=== PATIENT | female | born 1960 | race Caucasian/White ===

== ENCOUNTER 2020-09-16 19:06 | Outpatient (CLI) | payer MEDICAID | END 2020-09-16 19:07 | disposition critical access hospital (66) | LOC: EMS 19:06 | DX: F41.0 Panic disorder [episodic paroxysmal anxiety] (principal) | CPT/HCPCS: A0425; A0429 ==

== ENCOUNTER 2020-09-16 19:46 | Emergency (ER) | payer MEDICAID ==
[2020-09-16] MEDS ORDERED: LORazepam 1 MG TABLET PO STA (20:26)
--- NOTE | 2020-09-16 20:29 | ED Physician Documentation ---
History of Present Illness - Stated complaint Stated Complaint: PANIC ATTACK, NECK AND SHOULDER PAIN - Chief complaint Chief Complaint: MHE - Additonal information Additional information: 60-year-old female presents the emergency department after a panic attack. She reports a longstanding history of anxiety and panic attacks. She recently moved from [place] to [facility] in order to help care for her father. She got into a very heated argument with her dad and brother this afternoon which caused a panic attack. Though no treatment has been instituted she is feeling better however she is quite adamant that she will not return to her father's house. She is not sure what she will go tonight if she is hesitant to call her children in [place] to come pick her up. At this time she denies chest pain or shortness of air. She is anxious and is requesting some lorazepam. She denies thoughts of self-harm or harm to others. Past medical history includes depression and anxiety and hypothyroidism Meds: Gabapentin, venlafaxine, levothyroxine, omeprazole Review of Systems Constitutional: denies: Fever, Chills Eyes: reports: Reviewed and negative Ears: reports: Reviewed and negative Nose: reports: Reviewed and negative Throat: reports: Reviewed and negative Cardiac: reports: Reviewed and negative Respiratory: reports: Reviewed and negative GI: reports: Reviewed and negative : reports: Reviewed and negative Skin: denies: Rash, Lesions Musculoskeletal: reports: Reviewed and negative Neurologic: reports: Reviewed and negative Psychiatric: reports: Depressed, Anxiety. 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 : Kidney stones HEENT: None Psych: Depression Musculoskeletal: None Derm: None - Past Surgical History Past Surgical History: Yes General: Cholecystectomy, Appendectomy /PLASTICS SCIENTIST: Hysterectomy - Present Medications Home Medications: Ambulatory Orders Medication Instructions Recorded Confirmed Levothyroxine [Synthroid] 1 tab ORAL DAILY 10/23/12 10/23/12 Ondansetron Odt [Zofran] 4 mg TL Q6H PRN #15 tablet 08/19/13 PARoxetine HCl [Paxil] 30 mg PO DAILY 08/19/13 08/19/13 oxyCODONE/ACET 5/325 [Percocet 5 1 each PO Q4-6H PRN #15 tablet 08/19/13 mg/325 mg] Escitalopram Oxalate [Lexapro] 25 mg PO DAILY 12/11/13 12/11/13 Ibuprofen [Motrin] 800 mg PO Q8H PRN #30 tablet 12/11/13 Levothyroxine [Synthroid] 125 mcg PO DAILY 12/11/13 12/11/13 Ondansetron Odt [Zofran] 4 mg TL Q6H PRN #10 tablet 12/11/13 Oxycodone HCl/Acetaminophen 1 - 2 each PO Q6H PRN #14 tablet 12/11/13 [Percocet 5-325 mg Tablet] LORazepam [Ativan] 1 mg PO BID PRN #7 tablet 09/16/20 - Allergies Allergies/Adverse Reactions: Allergies Allergy/AdvReac Type Severity Reaction Status Date / Time prochlorperazine edisylate * Allergy Severe paralysis Verified 09/16/20 19:57 [From Compazine] prochlorperazine maleate * Allergy Severe paralysis Verified 09/16/20 19:57 [From Compazine] Penicillins Allergy Unknown Rash Verified 09/16/20 19:57 Sulfa (Sulfonamide Allergy Unknown Nausea Verified 09/16/20 19:57 Antibiotics) - Social History Does the pt smoke?: No Smoking Status: Never smoker Does the pt drink ETOH?: No Does the pt have substance abuse?: No - Immunizations Immunizations are current?: Yes - POLST Patient has POLST: No PD ED PE EXPANDED - General General: Alert, No acute distress, Well developed/nourished - HEENT HEENT: Atraumatic - Neck Neck: Supple w/out meningeal sx. No: Adenopathy - Cardiac Cardiac: Regular Rate, Regular Rhythm - Respiratory Respiratory: Clear to ausultation anmol. No: Distress, Labored - Abdomen Abdomen: Normal Bowel sounds. No: Tender to palpation - Neuro Neuro: Alert and Oriented X 3, CNII-XII intact - GCS Eye Opening: Spontaneous Motor: Obeys Commands Verbal: Oriented Total: 15 - Psych Psych: Tearful, Anxious Results - Vitals Vitals: Vital Signs - 24 hr 09/16/20 09/16/20 19:55 20:44 Temperature 36.7 C Heart Rate 93 Respiratory 16 16 Rate Blood Pressure 146/77 H O2 Saturation 98 Oxygen O2 Source Room air PD MEDICAL DECISION MAKING - ED course Complexity details: re-evaluated patient, d/w patient ED course: 60-year-old female presents to the emergency department for evaluation of an anxiety attack. She is adamant that she will not return to her father's house however she is also not willing to board overnight in the emergency department to discuss her concerns with social work. She does not have thoughts of self- harm or harm to others. She is resistant to calling her children to pick her up. She is requesting some Ativan to help manage her anxiety which I will give. 2114: On reassessment the patient is feeling better after some Ativan. She does not wish to return to her father's home but she also does not want to remain in the emergency department overnight to speak with social work in the morning. She is safe and has capacity make this decision. I will write a prescription for limited amount of Ativan. She will then take a taxi to her dad's house where she will retrieve her possessions and likely call one of her sons from [place] to pick her up. Departure - Departure Disposition: Home, Self Care Clinical Impression: Panic attack Condition: Stable Record reviewed to determine appropriate education?: Yes Instructions: ED Panic Attack Prescriptions: LORazepam [Ativan] 1 mg PO BID PRN #7 tablet PRN Reason: Anxiety Comments: Johny you did have a panic attack. It is important that you continue to take all the medications you have previously been prescribed for your anxiety and depression. I have prescribed a limited amount of Ativan to be used for severe anxiety symptoms. If at any point you feel unsafe or have thoughts of self-harm please return immediately to the emergency department
[2020-09-16 21:28] VITALS: BP 139/66
== END 2020-09-16 21:40 | disposition home or self-care (01) ==
LOC: EDUNIT# → ED 19:46
DX: F41.0 Panic disorder [episodic paroxysmal anxiety] (principal); F32.9 Major depressive disorder, single episode, unspecified; E03.9 Hypothyroidism, unspecified
CPT/HCPCS: 99283; J8499

== ENCOUNTER 2021-02-08 18:31 | Outpatient (CLI) | payer MEDICAID | END 2021-02-08 18:32 | disposition EMS.NT | LOC: EMS 18:31 | DX: R45.89 Other symptoms and signs involving emotional state (principal) ==

== ENCOUNTER 2021-03-27 14:24 | Outpatient (CLI) | payer MEDICAID ==
--- NOTE | 2021-03-28 08:03 | Mammography Report ---
BILATERAL DIGITAL SCREENING MAMMOGRAM 3D/2D WITH AUGMENTATION: 03/27/2021 CLINICAL: Routine screening. Comparison is made to exams dated: 01/01/2012 ultrasound, 01/01/2012 mammogram, and 03/25/2008 mammogr - [facility]. The tissue of both breasts is heterogeneously dense. This may low er the sensitivity of mammography. There is a possible developing new asymmetry in the left breast anterior depth central to the nipple seen on the craniocaudal view only. No other significant masses, calcifications, or other findings are seen in either breast. There has been no significant interval change. IMPRESSION: INCOMPLETE: NEEDS ADDITIONAL IMAGING EVALUATION The possible developing new asymmetry in the left breast is indeterminate. Additional views with pos sible ultrasound are recommended. This exam was interpreted at Station ID: [id number]. NOTE: For mammograms, a report in lay terms will be sent to the patient. Approximately 15% of breast malignancies will not be visualized mammographically. In the management of a palpable breast mass, a negative mammogram must not discourage biopsy of a clinically suspicious lesion. Electronically Signed By: Jacquie montague/shazia:03/27/2021 17:16:37 ACR BI-RADS Category 0: Incomplete 3340F PARENCHYMAL PATTERN: (D) - The breast(s) demonstrate(s) heterogeneously dense fibroglandular parmadalyn murdock. BI-RADS CATEGORY: (0) - 0 Mammo and US [id number] Immediate follow-up LATERALITY: (B)
== END 2021-03-27 14:25 | disposition home or self-care (01) ==
LOC: DI 14:24
PROVIDERS: ATTEND Registered Nurse
DX: Z12.31 Encounter for screening mammogram for malignant neoplasm of breast (principal); R92.8 Other abnormal and inconclusive findings on diagnostic imaging of breast

== ENCOUNTER 2021-03-27 14:28 | Outpatient (CLI) | payer MEDICAID ==
--- NOTE | 2021-04-03 14:27 | DEXA Report ---
PROCEDURE: Dexa Spine and/or Hip INDICATIONS: OSTEOPENIA TECHNIQUE: Dual energy x-ray absorptiometry (DXA) was performed on a DLC System. Regions measur ed are the AP Spine, femoral neck, and if needed forearm. COMPARISON: None. FINDINGS: Lumbar Spine: Bone Mineral Density 1.076 g/cm/cm,T score -0.9, unremarkable Left Hip: Bone Mineral Density 0.867 g/cm/cm,T score -1.1, minimal osteopenia Left Femoral Neck: Bone Mineral Density 0.810 g/cm/cm, T score -1.5, mild osteopenia (T score greater or equal to -1.0: NORMAL) (T score from -1.1 to -2.4: OSTEOPENIA) (T score less than or equal to -2.5 to: OSTEOPOROSIS) Impression: Minimal to mild osteopenia within the left hip and femoral neck. Patients with diagnosis of osteoporosis or osteopenia should have regular bone mineral density assess ment. For those eligible for Medicare, routine testing is allowed once every 2 years. Testing frequ ency can be increased for patients who have rapidly progressing disease or for those who are receivin g medical therapy to restore bone mass. Reviewed by: Sanna Cao MD on 04/03/2021 2:26 PM PDT Approved by: Sanna Cao MD on 04/03/2021 2:26 PM PDT Station ID: [id number]
== END 2021-03-27 14:29 | disposition home or self-care (01) ==
LOC: DI 14:28
PROVIDERS: ATTEND Registered Nurse
DX: M85.88 Other specified disorders of bone density and structure, other site (principal)

== ENCOUNTER 2021-05-03 09:33 | Outpatient (CLI) | payer MEDICAID ==
--- NOTE | 2021-05-04 13:29 | Ultrasound Report ---
LIMITED ULTRASOUND OF LEFT BREAST: 05/03/2021 CLINICAL: Patient returns today to evaluate a focal asymmetry in the left breast. Comparison is made to exams dated: 05/03/2021 mammogram, 03/27/2021 mammogram, 01/01/2012 mammogram, a nd 03/25/2008 mammogram - [facility]. Real-time ultrasound of the left breast 9-10 o'clock, and retroareolar regions was performed. Falk scale images of the real-time examination were reviewed. Fibroglandular tissue but no mass is identifed in the area of the mammographic asymmetry in the left breast central to the nipple. IMPRESSION: NEGATIVE No sonographic abnormality is seen corresponding to the mammographic asymmetry in the left breast marielle tral to the nipple, which is compatible with normal fibroglandular tissue. Return to screening mammog jessica is recommended. There is no sonographic evidence of malignancy. A 1 year screening mammogram is recommended. This exam was interpreted at Station ID: [id number]. Electronically Signed By: Cheo randall/shazia:05/03/2021 10:52:03 Ultrasound BI-RADS: 1 Negative BI-RADS CATEGORY: (1) - 1 RECOMMENDATION: (ANNUAL) - Recommend routine annual screening mammography. [id number] 1 year screening LATERALITY: (B)
--- NOTE | 2021-05-04 13:29 | Mammography Report ---
UNILATERAL LEFT DIGITAL DIAGNOSTIC MAMMOGRAM 3D/2D: 05/03/2021 CLINICAL: Patient returns today to evaluate an asymmetry in the left breast. Comparison is made to exams dated: 03/27/2021 mammogram, 01/01/2012 mammogram, and 03/25/2008 mammogr am - [facility]. The tissue of left breast is heterogeneously dense. This may lowe r the sensitivity of mammography. Left subpectoral saline implant is intact. There is a possible developing asymmetry in the left breast anterior depth central to the nipple seen on the craniocaudal view only. This is less prominent. No other significant masses or calcifications are seen in the breast. IMPRESSION: INCOMPLETE: NEEDS ADDITIONAL IMAGING EVALUATION The possible developing asymmetry in the left breast resembles fibroglandular tissue and is indetermi jean. An ultrasound is recommended. This exam was interpreted at Station ID: [id number]. NOTE: For mammograms, a report in lay terms will be sent to the patient. Approximately 15% of breast malignancies will not be visualized mammographically. In the management of a palpable breast mass, a negative mammogram must not discourage biopsy of a clinically suspicious lesion. Electronically Signed By: Cheo randall/shazia:05/03/2021 10:50:50 ACR BI-RADS Category 0: Incomplete 3340F PARENCHYMAL PATTERN: (D) - The breast(s) demonstrate(s) heterogeneously dense fibroglandular bobby murdock. BI-RADS CATEGORY: (0) - 0 Ultrasound [id number] Immediate follow-up LATERALITY: (L)
== END 2021-05-03 09:34 | disposition home or self-care (01) ==
LOC: DI 09:33
PROVIDERS: ATTEND Registered Nurse
DX: R92.8 Other abnormal and inconclusive findings on diagnostic imaging of breast (principal)

== ENCOUNTER 2021-06-12 10:19 | Outpatient (CLI) | payer MEDICAID | END 2021-06-12 10:20 | disposition critical access hospital (66) | LOC: EMS 10:19 | DX: Z63.79 Other stressful life events affecting family and household (principal) | CPT/HCPCS: A0425; A0429 ==

== ENCOUNTER 2021-06-12 10:46 | Emergency (ER) | payer MEDICAID ==
--- NOTE | 2021-06-12 12:12 | ED Physician Documentation ---
History of Present Illness - Stated complaint Stated Complaint: MHE - Chief complaint Chief Complaint: MHE - History obtained from History obtained from: Patient - Additonal information Additional information: 61-year-old woman with history of anxiety and depression has had worsening shortness of breath and neck aches but she thinks are related to anxiety regarding her living situation and housing situation. She would like to be hospitalized for psychiatric stabilization. She denies fevers or chills. She is generally healthy taking a thyroid supplement for hypothyroidism and Lexapro for her depression. Was on gabapentin but stopped recently. 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 : Kidney stones HEENT: None Psych: Depression, Anxiety Musculoskeletal: None Derm: None - Past Surgical History Past Surgical History: Yes General: Cholecystectomy, Appendectomy /WASTEWATER TREATMENT PLANT SUPERVISOR: Hysterectomy - Present Medications Home Medications: Ambulatory Orders Medication Instructions Recorded Confirmed Levothyroxine [Synthroid] 1 tab ORAL DAILY 10/23/12 10/23/12 Ondansetron Odt [Zofran] 4 mg TL Q6H PRN #15 tablet 08/19/13 PARoxetine HCl [Paxil] 30 mg PO DAILY 08/19/13 08/19/13 oxyCODONE/ACET 5/325 [Percocet 5 1 each PO Q4-6H PRN #15 tablet 08/19/13 mg/325 mg] Escitalopram Oxalate [Lexapro] 25 mg PO DAILY 12/11/13 12/11/13 Ibuprofen [Motrin] 800 mg PO Q8H PRN #30 tablet 12/11/13 Levothyroxine [Synthroid] 125 mcg PO DAILY 12/11/13 12/11/13 Ondansetron Odt [Zofran] 4 mg TL Q6H PRN #10 tablet 12/11/13 Oxycodone HCl/Acetaminophen 1 - 2 each PO Q6H PRN #14 tablet 12/11/13 [Percocet 5-325 mg Tablet] LORazepam [Ativan] 1 mg PO BID PRN #7 tablet 09/16/20 - Allergies Allergies/Adverse Reactions: Allergies Allergy/AdvReac Type Severity Reaction Status Date / [facility] Allergy Severe paralysis Verified 06/12/21 11:01 [From Compazine] prochlorperazine maleate * Allergy Severe paralysis Verified 06/12/21 11:01 [From Compazine] Penicillins Allergy Unknown Rash Verified 06/12/21 11:01 Sulfa (Sulfonamide Allergy Unknown Nausea Verified 06/12/21 11:01 Antibiotics) - Social History Does the pt smoke?: No Smoking Status: Never smoker Does the pt drink ETOH?: No Does the pt have substance abuse?: No - Immunizations Immunizations are current?: Yes - POLST Patient has POLST: No PD ED PE NORMAL - Vitals Vital signs reviewed: Yes - General General: Alert and oriented X 3, Other (Tearful and overtly depressed) - HEENT HEENT: PERRL, EOMI, Pharynx benign - Neck Neck: Supple, no meningeal sign, No bony TTP - Cardiac Cardiac: RRR, No murmur - Respiratory Respiratory: No respiratory distress, Clear bilaterally - Abdomen Abdomen: Non tender - Back Back: No CVA TTP, No spinal TTP - Derm Derm: Normal color, Warm and dry, No rash - Extremities Extremities: No edema, No calf tenderness / cord - Neuro Neuro: Alert and oriented X 3, Normal speech Results - Vitals Vitals: Vital Signs - 24 hr 06/12/21 10:56 Temperature 36.6 C Heart Rate 104 H Respiratory 20 Rate Blood Pressure 137/96 H O2 Saturation 100 Oxygen O2 Source Room air - EKG (time done) 1227 Rate: Rate (enter#) (89) Rhythm: NSR Harmon: Normal Intervals: Normal MS QRS: Normal Ischemia: Normal ST segments - Labs Labs: Laboratory Tests 06/12/21 06/12/21 06/12/21 12:22 12:22 12:22 WBC 3.7 L RBC 4.74 Hgb 14.7 Hct 42.2 MCV 89.0 MCH 31.0 MCHC 34.8 RDW 12.7 Plt Count 229 MPV 8.7 Neut # (Auto) 1.8 Lymph # (Auto) 1.4 L [place] # (Auto) 0.3 Eos # (Auto) 0.1 Baso # (Auto) 0.0 Absolute Nucleated RBC 0.00 Nucleated RBC % 0.0 Sodium 140 Potassium 3.8 Chloride 102 Carbon Dioxide 22 Anion Gap 16.0 H BUN 10 Creatinine 0.6 Estimated GFR (MDRD) 102 Glucose 104 H Calcium 9.7 Total Bilirubin 1.0 AST 29 ALT 26 Alkaline Phosphatase 71 Total Protein 7.4 Albumin 4.8 Globulin 2.6 Albumin/Globulin Ratio 1.8 Lipase 27 TSH 0.30 L Urine Color Urine Clarity Urine pH Ur Specific [place] Urine Protein Urine Glucose (UA) Urine Ketones Urine Occult Blood Urine Nitrite Urine Bilirubin Urine Urobilinogen Ur Leukocyte Esterase Ur Microscopic Review Urine Culture Comments Nasal Adenovirus (PCR) Nasal B. parapertussis DNA (PCR) Nasal Coronavir 229E PCR Nasal Coronavir HKU1 PCR Nasal Coronavir NL63 PCR Nasal Coronavir OC43 PCR Nasal Enterovir/Rhinovir PCR Nasal Influenza B PCR Nasal Influenza A PCR Nasal Parainfluen 1 PCR Nasal Parainfluen 2 PCR Nasal Parainfluen 3 PCR Nasal Parainfluen 4 PCR Nasal RSV (PCR) Nasal B.pertussis DNA PCR Nasal C.pneumoniae (PCR) Kishor Human Metapneumo PCR Nasal M.pneumoniae (PCR) Nasal SARS-CoV-2 (PCR) Salicylates < 6.0 Urine Opiates Screen Ur Oxycodone Screen Urine Methadone Screen Ur Propoxyphene Screen Acetaminophen < 10 L Ur Barbiturates Screen Ur Tricyclics Screen Ur Phencyclidine Scrn Ur Amphetamine Screen U Methamphetamines Scrn U Benzodiazepines Scrn Urine Cocaine Screen U Cannabinoids Screen Ethyl Alcohol 207.4 06/12/21 06/12/21 12:30 12:58 WBC RBC Hgb Hct MCV MCH MCHC RDW Plt Count MPV Neut # (Auto) Lymph # (Auto) [place] # (Auto) Eos # (Auto) Baso # (Auto) Absolute Nucleated RBC Nucleated RBC % Sodium Potassium Chloride Carbon Dioxide Anion Gap BUN Creatinine Estimated GFR (MDRD) Glucose Calcium Total Bilirubin AST ALT Alkaline Phosphatase Total Protein Albumin Globulin Albumin/Globulin Ratio Lipase TSH Urine Color YELLOW Urine Clarity CLEAR Urine pH 8.0 H Ur Specific [place] 1.010 Urine Protein NEGATIVE Urine Glucose (UA) NEGATIVE Urine Ketones TRACE Urine Occult Blood NEGATIVE Urine Nitrite NEGATIVE Urine Bilirubin NEGATIVE Urine Urobilinogen 0.2 (NORMAL) Ur Leukocyte Esterase NEGATIVE Ur Microscopic Review NOT INDICATED Urine Culture Comments NOT INDICATED Nasal Adenovirus (PCR) NOT DETECTED Nasal B. parapertussis DNA (PCR) NOT DETECTED Nasal Coronavir 229E PCR NOT DETECTED Nasal Coronavir HKU1 PCR NOT DETECTED Nasal Coronavir NL63 PCR NOT DETECTED Nasal Coronavir OC43 PCR NOT DETECTED Nasal Enterovir/Rhinovir PCR NOT DETECTED Nasal Influenza B PCR NOT DETECTED Nasal Influenza A PCR NOT DETECTED Nasal Parainfluen 1 PCR NOT DETECTED Nasal Parainfluen 2 PCR NOT DETECTED Nasal Parainfluen 3 PCR NOT DETECTED Nasal Parainfluen 4 PCR NOT DETECTED Nasal RSV (PCR) NOT DETECTED Nasal B.pertussis DNA PCR NOT DETECTED Nasal C.pneumoniae (PCR) NOT DETECTED Kishor Human Metapneumo PCR NOT DETECTED Nasal M.pneumoniae (PCR) NOT DETECTED Nasal SARS-CoV-2 (PCR) NOT DETECTED Salicylates Urine Opiates Screen NEGATIVE Ur Oxycodone Screen NEGATIVE Urine Methadone Screen NEGATIVE Ur Propoxyphene Screen NEGATIVE Acetaminophen Ur Barbiturates Screen NEGATIVE Ur Tricyclics Screen NEGATIVE Ur Phencyclidine Scrn NEGATIVE Ur Amphetamine Screen NEGATIVE U Methamphetamines Scrn NEGATIVE U Benzodiazepines Scrn NEGATIVE Urine Cocaine Screen NEGATIVE U Cannabinoids Screen POSITIVE H Ethyl Alcohol PD MEDICAL DECISION MAKING - ED course ED course: 61-year-old woman presents with depression and anxiety. She is intoxicated biochemically but not so much clinically. She was observed for several hours, ambulatory without issue or ataxic gait. Seen by the child protective services social worker who felt her safe for discharge and gave her resources and formulated a follow-up plan. Departure - Departure Disposition: 01 Home, Self Care Clinical Impression: Depressive disorder Alcoholic intoxication Qualifiers: Complication of substance-induced condition: uncomplicated Qualified Code(s): F10.920 - Alcohol use, unspecified with intoxication, uncomplicated Condition: Good Record reviewed to determine appropriate education?: Yes Instructions: ED Depression, ED Alcohol Intoxication Comments: Follow-up with the crisis child protective services social worker tomorrow as arranged by our child protective services social worker. Return for new or worsening symptoms. I recommend abstaining from drugs and alcohol.
[2021-06-12 12:27] LABS: BASOPHILS % (AUTO) 1.1 %; EOSINOPHILS # (AUTO) 0.1 10^3/uL (0.0-0.7); EOSINOPHILS % (AUTO) 1.4 %; HCT - HEMATOCRIT 42.2 % (37.0-47.0); HGB - HEMOGLOBIN 14.7 g/dL (12.0-16.0); LYMPHOCYTES # (AUTO) 1.4 10^3/uL (1.5-3.5); LYMPHOCYTES % (AUTO) 38.9 %; MEAN CORPUSCULAR HGB CONC 34.8 g/dL (32.0-36.0); MEAN PLATELET VOLUME 8.7 fL (7.9-10.8); MONOCYTES # (AUTO) 0.3 10^3/uL (0.0-1.0); MONOCYTES % (AUTO) 9.2 %; NEUTROPHILS # (AUTO) 1.8 10^3/uL (1.5-6.6); NEUTROPHILS % (AUTO) 49.1 %; PLT - PLATELET COUNT 229 10^3/uL (130-450); RED BLOOD COUNT 4.74 10^6/uL (4.20-5.40); RED CELL DISTRIBUTION WIDTH 12.7 % (12.0-15.0); WHITE BLOOD COUNT 3.7 x10^3/uL (4.8-10.8)
[2021-06-12] MEDS ORDERED: LORazepam 1 MG TABLET PO STA (12:34)
[2021-06-12 12:44] LABS: ACETAMINOPHEN < 10 ug/mL (10-30); ALBUMIN 4.8 g/dL (3.2-5.5); ALBUMIN/GLOBULIN RATIO 1.8 (1.0-2.2); ALKALINE PHOSPHATASE 71 IU/L (42-121); ALT ALANINE AMINOTRANSFERASE 26 IU/L (10-60); AST ASPARTATE AMINOTRANSFERASE 29 IU/L (10-42); BUN - BLOOD UREA NITROGEN 10 mg/dL (6-20); CALCIUM 9.7 mg/dL (8.5-10.3); CARBON DIOXIDE - CO2 22 mmol/L (21-32); CHLORIDE 102 mmol/L (101-111); CREATININE 0.6 mg/dL (0.4-1.0); ETOH - ETHANOL 207.4 mg/dL; GFR - MDRD 102 (>89); GLUCOSE 104 mg/dL (70-100); LIPASE 27 U/L (22-51); POTASSIUM 3.8 mmol/L (3.5-5.0); SALICYLATE < 6.0 mg/dL; SODIUM 140 mmol/L (135-145); TOTAL PROTEIN 7.4 g/dL (6.7-8.2)
[2021-06-12 12:47] LABS: MUDS CUTOFF CONCENTRATIONS CUTOFF CONC BELOW:
[2021-06-12 12:52] LABS: BILIRUBIN,URINE NEGATIVE (NEGATIVE); GLUCOSE, URINE (UA) NEGATIVE (NEGATIVE); KETONES,URINE (UA) TRACE mg/dL (NEGATIVE); LEUKOCYTE ESTERASE, URINE NEGATIVE (NEGATIVE); NITRITE,URINE NEGATIVE (NEGATIVE); OCCULT BLOOD,URINE NEGATIVE (NEGATIVE); PROTEIN,URINE NEGATIVE (NEGATIVE); UROBILINOGEN,URINE 0.2 (NORMAL) E.U./dL (NORMAL)
[2021-06-12 12:53] LABS: CLARITY,URINE CLEAR (CLEAR)
[2021-06-12 13:03] LABS: AMPHETAMINE SCREEN,URINE NEGATIVE (NEGATIVE); BARBITURATE SCREEN,UR NEGATIVE (NEGATIVE); BENZODIAZEPINES SCREEN, URINE NEGATIVE (NEGATIVE); COCAINE SCREEN URINE NEGATIVE (NEGATIVE); METHADONE SCREEN, URINE NEGATIVE (NEGATIVE); METHAMPHETAMINES SCREEN, URINE NEGATIVE (NEGATIVE); OPIATE SCREEN, URINE NEGATIVE (NEGATIVE); OXYCODONE SCREEN, URINE NEGATIVE (NEGATIVE); PROPOXYPHENE SCREEN, URINE NEGATIVE (NEGATIVE); THC CANNABINOID SCREEN, URINE POSITIVE (NEGATIVE); TRICYCLIC ANTIDEPRESSANT,URINE NEGATIVE (NEGATIVE)
[2021-06-12 14:23] LABS: B. PARAPERTUSSIS- RESP PCR PAN NOT DETECTED; B. PERTUSSIS- RESP PCR PANEL NOT DETECTED; C. PNEUMONIAE- RESP PCR PANEL NOT DETECTED; CORONAVIRUS 229E-RESP PCR NOT DETECTED; CORONAVIRUS HKU1-RESP PCR NOT DETECTED; CORONAVIRUS NL63-RESP PCR NOT DETECTED; CORONAVIRUS OC43-RESP PCR NOT DETECTED; HUMAN METAPNEUMOVIRUS NOT DETECTED; INFLUENZA A- RESP PCR PANEL NOT DETECTED; INFLUENZA B - RESP PCR PANEL NOT DETECTED; M. PNEUMONIAE- RESP PCR PANEL NOT DETECTED; PARAINFLUENZA VIRUS 1 NOT DETECTED; PARAINFLUENZA VIRUS 2 NOT DETECTED; PARAINFLUENZA VIRUS 3 NOT DETECTED; PARAINFLUENZA VIRUS 4 NOT DETECTED; RHINOVIRUS/ENTEROVIRUS NOT DETECTED; RSV- RESP PCR PANEL NOT DETECTED; SARS-CoV-2 -RESP PCR PANEL NOT DETECTED
[2021-06-12 17:08] VITALS: BP 159/64
== END 2021-06-12 17:09 | disposition home or self-care (01) ==
LOC: EDUNIT# → ED 10:46
DX: F32.A Depression, unspecified (principal); F41.9 Anxiety disorder, unspecified; F10.920 Alcohol use, unspecified with intoxication, uncomplicated; E03.9 Hypothyroidism, unspecified; Z20.822 Contact with and (suspected) exposure to COVID-19
CPT/HCPCS: 0202U; 36415; 80053; 80306; 80307; 80320; 80329; 81003; 83690; 84443; 85025; 93005; 99283; J8499; 81001; 87086

== ENCOUNTER 2021-06-21 12:49 | Outpatient (CLI) | payer MEDICAID ==
[2021-06-21 15:12] LABS: BASOPHILS % (AUTO) 0.9 %; EOSINOPHILS % (AUTO) 0.2 %; HCT - HEMATOCRIT 39.3 % (37.0-47.0); HGB - HEMOGLOBIN 13.6 g/dL (12.0-16.0); LYMPHOCYTES # (AUTO) 0.7 10^3/uL (1.5-3.5); LYMPHOCYTES % (AUTO) 15.7 %; MEAN CORPUSCULAR HEMOGLOBIN 30.8 pg (27.0-31.0); MEAN CORPUSCULAR HGB CONC 34.6 g/dL (32.0-36.0); MEAN CORPUSCULAR VOLUME 88.9 fL (81.0-99.0); MEAN PLATELET VOLUME 9.9 fL (7.9-10.8); MONOCYTES # (AUTO) 0.4 10^3/uL (0.0-1.0); MONOCYTES % (AUTO) 8.1 %; NEUTROPHILS # (AUTO) 3.4 10^3/uL (1.5-6.6); NEUTROPHILS % (AUTO) 74.9 %; PLT - PLATELET COUNT 157 10^3/uL (130-450); RED BLOOD COUNT 4.42 10^6/uL (4.20-5.40); RED CELL DISTRIBUTION WIDTH 12.6 % (12.0-15.0); WHITE BLOOD COUNT 4.6 x10^3/uL (4.8-10.8)
[2021-06-21 15:34] LABS: ALBUMIN 4.6 g/dL (3.2-5.5); ALBUMIN/GLOBULIN RATIO 1.5 (1.0-2.2); ALKALINE PHOSPHATASE 74 IU/L (42-121); ALT ALANINE AMINOTRANSFERASE 42 IU/L (10-60); AST ASPARTATE AMINOTRANSFERASE 42 IU/L (10-42); BILIRUBIN,TOTAL 0.7 mg/dL (0.2-1.0); BUN - BLOOD UREA NITROGEN 11 mg/dL (6-20); CALCIUM 9.6 mg/dL (8.5-10.3); CARBON DIOXIDE - CO2 25 mmol/L (21-32); CHLORIDE 96 mmol/L (101-111); CHOL/HDL RATIO 1.7 (<4.4); CHOLESTEROL 225 mg/dL; CREATININE 0.8 mg/dL (0.4-1.0); GFR - MDRD 73 (>89); GLUCOSE 159 mg/dL (70-100); HDL CHOLESTEROL 129 mg/dL; LDL CHOLESTEROL,CALCULATED 82 mg/dL; LDL/HDL RATIO 0.6 (<4.4); POTASSIUM 3.2 mmol/L (3.5-5.0); SODIUM 131 mmol/L (135-145); TOTAL PROTEIN 7.7 g/dL (6.7-8.2); TRIGLYCERIDES 69 mg/dL; VLDL CHOLESTEROL 14 mg/dL
[2021-06-21 15:46] LABS: THYROID STIMULATING HORMONE 0.18 uIU/mL (0.34-5.60)
[2021-06-21 16:28] LABS: FREE T4 (FREE THYROXINE) 1.35 ng/dL (0.58-1.64)
== END 2021-06-21 12:50 | disposition home or self-care (01) ==
LOC: LAB.S 12:49
PROVIDERS: ATTEND Registered Nurse
DX: E03.9 Hypothyroidism, unspecified (principal); Z79.899 Other long term (current) drug therapy
CPT/HCPCS: 36415; 80053; 80061; 83721; 84439; 84443; 85025

== ENCOUNTER 2021-07-05 17:17 | Emergency (ER) | payer MEDICAID ==
[2021-07-05] MEDS ORDERED: IOVERSOL 320 100 ML VIAL IVP ONE (18:04)
[2021-07-05] MEDS: SODIUM CHLORIDE 0.9% 1,000 ML IV STA (18:06)
[2021-07-05 18:07] LABS: BASOPHILS % (AUTO) 0.7 %; EOSINOPHILS % (AUTO) 0.4 %; HCT - HEMATOCRIT 42.4 % (37.0-47.0); HGB - HEMOGLOBIN 14.2 g/dL (12.0-16.0); LYMPHOCYTES # (AUTO) 1.6 10^3/uL (1.5-3.5); LYMPHOCYTES % (AUTO) 29.4 %; MEAN CORPUSCULAR HEMOGLOBIN 30.9 pg (27.0-31.0); MEAN CORPUSCULAR HGB CONC 33.5 g/dL (32.0-36.0); MEAN CORPUSCULAR VOLUME 92.2 fL (81.0-99.0); MONOCYTES # (AUTO) 0.5 10^3/uL (0.0-1.0); MONOCYTES % (AUTO) 9.7 %; NEUTROPHILS # (AUTO) 3.3 10^3/uL (1.5-6.6); NEUTROPHILS % (AUTO) 59.6 %; PLT - PLATELET COUNT 228 10^3/uL (130-450); WHITE BLOOD COUNT 5.6 x10^3/uL (4.8-10.8)
[2021-07-05] MEDS: ONDANSETRON 4 MG/2 ML VIAL IVP STA (18:09)
[2021-07-05] MEDS: HYDROmorphone 1 MG/ML CARPUJECT IVP STA ×2 (18:12→19:57)
--- NOTE | 2021-07-05 18:22 | ED Physician Documentation ---
History of Present Illness - Stated complaint Stated Complaint: KIDNEY STONES - Chief complaint Chief Complaint: Abd Pain - Additonal information Additional information: 61-year-old female presents emergency department for evaluation of 1 week of right flank pain with hematuria. She has a remote history of kidney stones and reports that this feels similar. She did go to a local walk-in clinic today and was told to come to the ER for further evaluation. No fevers, no vomiting. Denies urinary urgency or frequency. Past surgical history includes cholecystectomy as well as partial hysterectomy with remaining right ovary. Patient does endorse moderate to heavy alcohol use and has abstained from alcohol for about 3 days. She denies any history of DTs or seizures with cessation of alcohol use. Review of Systems Constitutional: denies: Fever, Chills Ears: reports: Reviewed and negative Nose: reports: Reviewed and negative Cardiac: reports: Reviewed and negative Respiratory: reports: Reviewed and negative GI: reports: Abdominal Pain. denies: Nausea, Vomiting : reports: Hematuria. 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 MARGARINE: Hysterectomy - Present Medications Home Medications: Ambulatory Orders Medication Instructions Recorded Confirmed Levothyroxine [Synthroid] 1 tab ORAL DAILY 10/23/12 10/23/12 Ondansetron Odt [Zofran] 4 mg TL Q6H PRN #15 tablet 08/19/13 PARoxetine HCl [Paxil] 30 mg PO DAILY 08/19/13 08/19/13 oxyCODONE/ACET 5/325 [Percocet 5 1 each PO Q4-6H PRN #15 tablet 08/19/13 mg/325 mg] Escitalopram Oxalate [Lexapro] 25 mg PO DAILY 12/11/13 12/11/13 Ibuprofen [Motrin] 800 mg PO Q8H PRN #30 tablet 12/11/13 Levothyroxine [Synthroid] 125 mcg PO DAILY 12/11/13 12/11/13 Ondansetron Odt [Zofran] 4 mg TL Q6H PRN #10 tablet 12/11/13 Oxycodone HCl/Acetaminophen 1 - 2 each PO Q6H PRN #14 tablet 12/11/13 [Percocet 5-325 mg Tablet] LORazepam [Ativan] 1 mg PO BID PRN #7 tablet 09/16/20 - Allergies Allergies/Adverse Reactions: Allergies Allergy/AdvReac Type Severity Reaction Status Date / Time prochlorperazine edisylate * Allergy Severe paralysis Verified 07/05/21 17:38 [From Compazine] prochlorperazine maleate * Allergy Severe paralysis Verified 07/05/21 17:38 [From Compazine] Penicillins Allergy Unknown Rash Verified 07/05/21 17:38 Sulfa (Sulfonamide Allergy Unknown Nausea Verified 07/05/21 17:38 Antibiotics) - Social History Does the pt smoke?: No Smoking Status: Never smoker Does the pt drink ETOH?: No Does the pt have substance abuse?: No - Immunizations Immunizations are current?: Yes - POLST Patient has POLST: No PD ED PE NORMAL - General General: Alert and oriented X 3, No acute distress, Well developed/nourished - HEENT HEENT: Atraumatic, Ears normal, Moist mucous membranes - Neck Neck: Supple, no meningeal sign, No adenopathy - Cardiac Cardiac: RRR, No murmur - Respiratory Respiratory: No respiratory distress, Clear bilaterally - Abdomen Abdomen: Normal bowel sounds, Soft. No: Non tender (Mild tenderness of the right flank without guarding or rebound. Minimal CVA tenderness.) - Back Back: No CVA TTP, No spinal TTP - Derm Derm: Normal color - Extremities Extremities: No deformity, No tenderness to palpate, Normal ROM s pain - Neuro Neuro: child care provider 2-12 intact. No: Alert and oriented X 3 (Confused/demented) Eye Opening: Spontaneous Motor: Obeys Commands Verbal: Oriented GCS Score: 15 Results - Vitals Vitals: Vital Signs - 24 hr 07/05/21 07/05/21 17:35 18:45 Temperature 36.4 C L Heart Rate 85 94 Respiratory 16 15 Rate Blood Pressure 123/63 131/84 H O2 Saturation 98 100 Oxygen O2 Source Room air - Labs Labs: Laboratory Tests 02/02/22 02/02/22 02/02/22 18:00 18:00 18:41 WBC 5.6 RBC 4.60 Hgb 14.2 Hct 42.4 MCV 92.2 MCH 30.9 MCHC 33.5 RDW 14.0 Plt Count 228 MPV 9.0 Neut # (Auto) 3.3 Lymph # (Auto) 1.6 [place] # (Auto) 0.5 Eos # (Auto) 0.0 Baso # (Auto) 0.0 Absolute Nucleated RBC 0.00 Nucleated RBC % 0.0 Sodium 138 Potassium 3.6 Chloride 102 Carbon Dioxide 23 Anion Gap 13.0 BUN 5 L Creatinine 0.8 Estimated GFR (MDRD) 73 L Glucose 117 H Calcium 9.4 Total Bilirubin 0.8 AST 47 H ALT 115 H Alkaline Phosphatase 110 Total Protein 7.6 Albumin 4.6 Globulin 3.0 Albumin/Globulin Ratio 1.5 Lipase 44 Urine Color COLORLESS Urine Clarity CLEAR Urine pH 6.0 Ur Specific [place] <=1.005 Urine Protein NEGATIVE Urine Glucose (UA) NEGATIVE Urine Ketones NEGATIVE Urine Occult Blood NEGATIVE Urine Nitrite NEGATIVE Urine Bilirubin NEGATIVE Urine Urobilinogen 0.2 (NORMAL) Ur Leukocyte Esterase NEGATIVE Ur Microscopic Review NOT INDICATED Urine Culture Comments NOT INDICATED - Rads (name of study) CT abd Radiology: Final report received (No renal stone or hydronephrosis. No hydroureter. No perinephric fat standing. Bladder wall thickness is normal. No bowel obstruction or abnormal bowel wall thickening. Questionable mid to distal gastric wall thickening which may represent gastritis.) PD MEDICAL DECISION MAKING - ED course Complexity details: reviewed results, re-evaluated patient, considered differential, d/w patient ED course: 61-year-old female presents emergency department for evaluation 1 week right flank pain. She reports hematuria and states that this feels similar to when she has had kidney stones in the past. She went to a local walk-in clinic today who advised her to come to the ER for further evaluation. Screening labs are without acute worrisome findings. We do note that she has mildly elevated transaminase. She is a heavy alcohol user and this was discussed with the patient she is advised to reduce her drinking. Her urine showed no signs of infection there was no hematuria. A CT of the abdomen did not reveal any nephrolithiasis hydroureter or findings of obstruction. Her bowel was also without acute findings. We do note previous cholecystectomy as well as hysterectomy. Because of her flank pain is not clear though no further evaluation or imaging is warranted at this time. Labs and CT imaging were discussed at length with the patient. Patient is could be discharged home continue close follow-up with primary care provider. Emergent return precautions were discussed worsening symptoms. Departure - Departure Disposition: 01 Home, Self Care Clinical Impression: Right flank pain Condition: Stable Record reviewed to determine appropriate education?: Yes Instructions: ED Acute Pain [facility] Comments: Seble guzman were seen in the emergency department today for about 1 week of right flank pain and concerns that you could have kidney stones. Your screening labs and urine did not show any worrisome findings. We do note that your liver function tests are mildly elevated this is likely due to your history of alcohol use. You are cautioned to reduce your alcohol use long-term to help reduce the risk of developing cirrhosis. Your urine showed no infection or blood in it. We did do a CT of the abdomen that did not show any findings of kidney stones or obstruction. The cause of your pain is not clear. I do recommend that you take Tylenol or ibuprofen for discomfort. If at any point you find that your symptoms are worsening, you have black or bloody stools, fevers, sudden severe pain or uncontrolled vomiting then please return immediately to the ER for second evaluation.
[2021-07-05 18:25] LABS: ALBUMIN 4.6 g/dL (3.2-5.5); ALBUMIN/GLOBULIN RATIO 1.5 (1.0-2.2); BILIRUBIN,TOTAL 0.8 mg/dL (0.2-1.0); CALCIUM 9.4 mg/dL (8.5-10.3); CREATININE 0.8 mg/dL (0.4-1.0); POTASSIUM 3.6 mmol/L (3.5-5.0); TOTAL PROTEIN 7.6 g/dL (6.7-8.2)
[2021-07-05 18:51] LABS: BILIRUBIN,URINE NEGATIVE (NEGATIVE); GLUCOSE, URINE (UA) NEGATIVE (NEGATIVE); KETONES,URINE (UA) NEGATIVE (NEGATIVE); LEUKOCYTE ESTERASE, URINE NEGATIVE (NEGATIVE); NITRITE,URINE NEGATIVE (NEGATIVE); OCCULT BLOOD,URINE NEGATIVE (NEGATIVE); PROTEIN,URINE NEGATIVE (NEGATIVE); UROBILINOGEN,URINE 0.2 (NORMAL) E.U./dL (NORMAL)
[2021-07-05 18:56] LABS: CLARITY,URINE CLEAR (CLEAR)
--- NOTE | 2021-07-05 19:57 | CT Report ---
PROCEDURE: Abdomen/Pelvis W INDICATIONS: Right flank pain; ? urinary obstruction CONTRAST: IV CONTRAST: Optiray 320 ml: 100 PO CONTRAST: *NO PO CONTRAST TECHNIQUE: After the administration of IV contrast, 5 mm thick sections acquired from the diaphragms to the symp hysis. 5 mm thick coronal and sagittal reformats were acquired. For radiation dose reduction, the f ollowing was used: automated exposure control, adjustment of mA and/or kV according to patient size. COMPARISON: 08/19/2013. FINDINGS: Image quality: Excellent. ABDOMEN: Lung bases: Lung bases are clear. Heart size is normal. Included portion of bilateral breast implan ts are grossly intact. Solid organs: Liver and spleen are normal in size and enhancement. Gallbladder is surgically absent Biliary system is non dilated. Pancreas enhances normally. No adrenal nodules. Kidneys demonstra te normal size and enhancement, without hydronephrosis. No perinephric fat stranding. Peritoneum and bowel: Questionable mid to distal gastric wall thickening is seen concerning for low- grade infectious or inflammatory gastritis. Bowel loops demonstrate normal wall thickness and caliber . No free fluid or air. Appendix is surgically absent. Mild sigmoid diverticulosis is seen, no CT e vidence of acute diverticulitis. Nodes and vessels: No retroperitoneal or mesenteric adenopathy by size criteria. Aorta and inferior vena cava are normal in size. Miscellaneous: No ventral hernias. PELVIS: Genitourinary: Bladder wall thickness is normal. Miscellaneous: No inguinal hernias or adenopathy. Bones: No suspicious bony lesions. No vertebral body compression fractures. IMPRESSION: 1. No renal stone or hydronephrosis. No hydroureter. No perinephric fat stranding. Bladder wall thick ness is normal. No calcified bladder stone. 2. No bowel obstruction or abnormal bowel wall thickening. Questionable mid to distal gastric wall th ickening which may represent gastritis. No free fluid of free air. Appendix is surgically absent. Mil d sigmoid diverticulosis without evidence of acute diverticulitis. 3. Prior cholecystectomy. Reviewed by: Leon Howard MD on 07/05/2021 7:56 PM PST Approved by: Leon Howard MD on 07/05/2021 7:56 PM PST Station ID: [id number]
[2021-07-05 20:43] VITALS: BP 114/65
[2021-07-05] MEDS: IOVERSOL 320 100 ML VIAL IVP ONE (20:50)
== END 2021-07-05 20:43 | disposition home or self-care (01) ==
LOC: ED 17:17
DX: R10.9 Unspecified abdominal pain (principal); R74.01 Elevation of levels of liver transaminase levels; Z87.442 Personal history of urinary calculi; Z90.49 Acquired absence of other specified parts of digestive tract
CPT/HCPCS: 36415; 74177; 80053; 81003; 83690; 85025; 96361; 96374; 96375; 96376; 99282; 99284; J1170; Q9967; 81001; 87086

== ENCOUNTER 2021-11-22 08:00 | Outpatient (CLI) | payer SELFPAY ==
[2021-11-22 15:15] LABS: BILIRUBIN,URINE NEGATIVE (NEGATIVE); GLUCOSE, URINE (UA) NEGATIVE (NEGATIVE); KETONES,URINE (UA) NEGATIVE (NEGATIVE); LEUKOCYTE ESTERASE, URINE NEGATIVE (NEGATIVE); NITRITE,URINE NEGATIVE (NEGATIVE); OCCULT BLOOD,URINE LARGE (NEGATIVE); PROTEIN,URINE NEGATIVE (NEGATIVE); UROBILINOGEN,URINE 0.2 (NORMAL) E.U./dL (NORMAL)
[2021-11-22 15:19] LABS: CLARITY,URINE CLEAR (CLEAR)
[2021-11-22 15:24] LABS: WBC,URINE 0-3 /HPF (0-5)
[2021-11-22 15:25] LABS: BACTERIA,URINE None Seen /HPF (None Seen); SQUAMOUS EPITHELIAL CELL,UR RARE Squamous (<= Few)
== END 2021-11-22 23:59 | disposition home or self-care (01) ==
LOC: LAB 08:00
PROVIDERS: ATTEND Physician Assistant Medical
DX: R10.9 Unspecified abdominal pain (principal)
CPT/HCPCS: 81001; 87086

== ENCOUNTER 2021-12-28 12:03 | Emergency (ER) | payer OTHER ==
[2021-12-28 13:04] LABS: BASOPHILS # (AUTO) 0.1 10^3/uL (0.0-0.1); BASOPHILS % (AUTO) 1.1 %; EOSINOPHILS % (AUTO) 0.2 %; HCT - HEMATOCRIT 43.3 % (37.0-47.0); HGB - HEMOGLOBIN 15.1 g/dL (12.0-16.0); LYMPHOCYTES # (AUTO) 1.1 10^3/uL (1.5-3.5); LYMPHOCYTES % (AUTO) 25.8 %; MEAN CORPUSCULAR HEMOGLOBIN 31.2 pg (27.0-31.0); MEAN CORPUSCULAR HGB CONC 34.9 g/dL (32.0-36.0); MEAN CORPUSCULAR VOLUME 89.5 fL (81.0-99.0); MEAN PLATELET VOLUME 8.8 fL (7.9-10.8); MONOCYTES # (AUTO) 0.3 10^3/uL (0.0-1.0); MONOCYTES % (AUTO) 6.6 %; NEUTROPHILS # (AUTO) 2.9 10^3/uL (1.5-6.6); NEUTROPHILS % (AUTO) 65.8 %; PLT - PLATELET COUNT 185 10^3/uL (130-450); RED BLOOD COUNT 4.84 10^6/uL (4.20-5.40); RED CELL DISTRIBUTION WIDTH 12.6 % (12.0-15.0); WHITE BLOOD COUNT 4.4 x10^3/uL (4.8-10.8)
[2021-12-28 13:22] LABS: ALBUMIN 4.8 g/dL (3.2-5.5); ALBUMIN/GLOBULIN RATIO 1.5 (1.0-2.2); BILIRUBIN,TOTAL 1.1 mg/dL (0.2-1.0); CALCIUM 9.9 mg/dL (8.5-10.3); CREATININE 0.6 mg/dL (0.4-1.0); POTASSIUM 4.7 mmol/L (3.5-5.0)
[2021-12-28 14:58] LABS: BILIRUBIN,URINE NEGATIVE (NEGATIVE); GLUCOSE, URINE (UA) NEGATIVE (NEGATIVE); KETONES,URINE (UA) 15 mg/dL (NEGATIVE); LEUKOCYTE ESTERASE, URINE NEGATIVE (NEGATIVE); NITRITE,URINE NEGATIVE (NEGATIVE); OCCULT BLOOD,URINE LARGE (NEGATIVE); PROTEIN,URINE NEGATIVE (NEGATIVE); UROBILINOGEN,URINE 0.2 (NORMAL) E.U./dL (NORMAL)
[2021-12-28 15:08] LABS: CLARITY,URINE CLOUDY (CLEAR)
[2021-12-28 15:09] LABS: BACTERIA,URINE None Seen /HPF (None Seen); RBC,URINE TNTC /HPF (0-5); SQUAMOUS EPITHELIAL CELL,UR NONE SEEN (<= Few); WBC,URINE 0-3 /HPF (0-5)
--- NOTE | 2021-12-28 15:35 | ED Physician Documentation ---
History of Present Illness - Stated complaint Stated Complaint: GROIN/BACK PX - Chief complaint Chief Complaint: Abd Pain - History obtained from History obtained from: Patient - Additonal information Additional information: The patient comes to the emergency department chief complaint of left pelvic and groin pain for the last 2 days. She states the pain starts in her low pelvis and then shoots down her left leg. Is worse with movement especially flexing at the hip. She denies any urinary symptoms. No vaginal symptoms. She has a history of removal of her right ovary secondary to cyst. She denies any other pain elsewhere in her abdomen. No bowel changes. No nausea, vomiting, or fevers. Review of Systems Ten Systems: 10 systems reviewed and negative Constitutional: reports: Reviewed and negative Eyes: reports: Reviewed and negative Ears: reports: Reviewed and negative Nose: reports: Reviewed and negative Throat: reports: Reviewed and negative Cardiac: reports: Reviewed and negative Respiratory: reports: Reviewed and negative GI: reports: Other (Pelvic pain) : reports: Reviewed and negative Skin: reports: Reviewed and negative Musculoskeletal: reports: Reviewed and negative Neurologic: reports: Reviewed and negative Psychiatric: reports: Reviewed and negative Endocrine: reports: Reviewed and negative Immunocompromised: reports: Reviewed and negative PD PAST MEDICAL HISTORY - Past Medical History Cardiovascular: None Respiratory: None Neuro: None Endocrine/Autoimmune: HyPOthyroidism GI: GERD, Hepatitis 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 : Kidney stones HEENT: None Psych: Depression, Anxiety Musculoskeletal: None Derm: None - Past Surgical History Past Surgical History: Yes General: Cholecystectomy, Appendectomy /BUDGET ENGINEER: Hysterectomy - Present Medications Home Medications: Ambulatory Orders Medication Instructions Recorded Confirmed Levothyroxine [Synthroid] 1 tab ORAL DAILY 10/23/12 10/23/12 Ondansetron Odt [Zofran] 4 mg TL Q6H PRN #15 tablet 08/19/13 PARoxetine HCl [Paxil] 30 mg PO DAILY 08/19/13 08/19/13 oxyCODONE/ACET 5/325 [Percocet 5 1 each PO Q4-6H PRN #15 tablet 08/19/13 mg/325 mg] Escitalopram Oxalate [Lexapro] 25 mg PO DAILY 12/11/13 12/11/13 Ibuprofen [Motrin] 800 mg PO Q8H PRN #30 tablet 12/11/13 Levothyroxine [Synthroid] 125 mcg PO DAILY 12/11/13 12/11/13 Ondansetron Odt [Zofran] 4 mg TL Q6H PRN #10 tablet 12/11/13 Oxycodone HCl/Acetaminophen 1 - 2 each PO Q6H PRN #14 tablet 12/11/13 [Percocet 5-325 mg Tablet] LORazepam [Ativan] 1 mg PO BID PRN #7 tablet 09/16/20 HYDROcod/ACETAM 5/325 [[place] 5/325] 1 - 2 tablet PO Q6H PRN #14 tablet 12/28/21 Ibuprofen [Motrin] 800 mg PO Q8H PRN #30 tablet 12/28/21 - Allergies Allergies/Adverse Reactions: Allergies Allergy/AdvReac Type Severity Reaction Status Date / Time prochlorperazine edisylate * Allergy Severe paralysis Verified 12/28/21 12:18 [From Compazine] prochlorperazine maleate * Allergy Severe paralysis Verified 12/28/21 12:18 [From Compazine] Penicillins Allergy Unknown Rash Verified 12/28/21 12:18 Sulfa (Sulfonamide Allergy Unknown Nausea Verified 12/28/21 12:18 Antibiotics) - Social History Does the pt smoke?: No Smoking Status: Never smoker Does the pt drink ETOH?: No Does the pt have substance abuse?: No - Immunizations Immunizations are current?: Yes - POLST Patient has POLST: No PD ED PE NORMAL - Vitals Vital signs reviewed: Yes - General General: Alert and oriented X 3, No acute distress, Well developed/nourished - HEENT HEENT: Atraumatic, PERRL, EOMI, Moist mucous membranes - Neck Neck: Supple, no meningeal sign - Cardiac Cardiac: RRR, No murmur, Strong equal pulses - Respiratory Respiratory: No respiratory distress, Clear bilaterally - Abdomen Abdomen: Soft, Non distended, Other (Moderate tenderness just superior to the left inguinal ligament; no mass.) - Derm Derm: Normal color, Warm and dry, No rash - Extremities Extremities: No deformity, No edema - Neuro Neuro: Alert and oriented X 3, power washer 2-12 intact, Normal speech - Psych Psych: Normal mood, Normal affect Results - Vitals Vitals: Vital Signs - 24 hr 12/28/21 12/28/21 12/28/21 12:14 14:41 18:00 Temperature 37.3 C Heart Rate 102 H 105 H 104 H Respiratory 14 14 Rate Blood Pressure 141/97 H 165/95 H 138/81 H O2 Saturation 98 99 97 Oxygen O2 Source Room air - Labs Labs: Laboratory Tests 12/28/21 12/28/21 12/28/21 12:59 12:59 14:51 WBC 4.4 L RBC 4.84 Hgb 15.1 Hct 43.3 MCV 89.5 MCH 31.2 H MCHC 34.9 RDW 12.6 Plt Count 185 MPV 8.8 Neut # (Auto) 2.9 Lymph # (Auto) 1.1 L [place] # (Auto) 0.3 Eos # (Auto) 0.0 Baso # (Auto) 0.1 Absolute Nucleated RBC 0.00 Nucleated RBC % 0.0 Sodium 133 L Potassium 4.7 Chloride 98 L Carbon Dioxide 22 Anion Gap 13.0 BUN 13 Creatinine 0.6 Estimated GFR (MDRD) 102 Glucose 89 Calcium 9.9 Total Bilirubin 1.1 H AST 402 H ALT 375 H Alkaline Phosphatase 257 H Total Protein 8.0 Albumin 4.8 Globulin 3.2 Albumin/Globulin Ratio 1.5 Lipase 26 Urine Color YELLOW Urine Clarity CLOUDY Urine pH 6.0 Ur Specific [place] 1.010 Urine Protein NEGATIVE Urine Glucose (UA) NEGATIVE Urine Ketones 15 H Urine Occult Blood LARGE H Urine Nitrite NEGATIVE Urine Bilirubin NEGATIVE Urine Urobilinogen 0.2 (NORMAL) Ur Leukocyte Esterase NEGATIVE Urine RBC TNTC H Urine WBC 0-3 Ur Squamous Epith Cells NONE SEEN Urine Bacteria None Seen Ur Microscopic Review INDICATED Urine Culture Comments NOT INDICATED - Rads (name of study) CT pelvis Radiology: Final report received, EMP read indepedently, See rad report (neg) PD MEDICAL DECISION MAKING - ED course Complexity details: reviewed results, re-evaluated patient, considered differential, d/w patient ED course: Patient was given a dose of Toradol and of hydrocodone, and worked up with noncontrast CT of the pelvis, which was negative. I suspect an abdominal/pelvic wall strain. We have discussed symptomatic management at home and the usual indications for return. Departure - Departure Disposition: 01 Home, Self Care Clinical Impression: Abdominal wall strain Qualifiers: Encounter type: initial encounter Qualified Code(s): S39.011A - Strain of muscle, fascia and tendon of abdomen, initial encounter Condition: Stable Instructions: ED Strain Abdominal Muscle Prescriptions: Ibuprofen [Motrin] 800 mg PO Q8H PRN #30 tablet PRN Reason: PAIN &/OR FEVER HYDROcod/ACETAM 5/325 [[place] 5/325] 1 - 2 tablet PO Q6H PRN #14 tablet PRN Reason: Pain Comments: Your CT scan is negative. Most likely, you have strained one of the muscle groups of your lower abdominal wall. This will get better on its own but you should avoid any activities that strain the area more. You may take the medications prescribed as needed in the meantime. Your prescriptions have been electronically transmitted to [facility] in [place]. Discharge Date/Time: 12/28/21 18:45
[2021-12-28] MEDS ORDERED: KETOROLAC 60 MG/2 ML VIAL IM STA (15:36)
--- NOTE | 2021-12-28 16:43 | CT Report ---
PROCEDURE: PELVIS WO INDICATIONS: L pelvic pain TECHNIQUE: Noncontrast 3 mm axial sections acquired through the bony pelvis, with coronal and sagittal reformatt ing. For radiation dose reduction, the following was used: automated exposure control, adjustment of mA and/or kV according to patient size. COMPARISON: CT examination dated 07/05/2021 FINDINGS: Image quality: Excellent. Bones: No fracture nor osseous lesion. Soft tissues: Visualized bowel loops and vasculature are normal in caliber and wall thickness. No re gional adenopathy. No free fluid. Urinary bladder is grossly unremarkable. No evidence of distal uret eral calcifications. IMPRESSION: Negative examination. Reviewed by: Taylor Suresh MD on 12/28/2021 4:42 PM PDT Approved by: Taylor Suresh MD on 12/28/2021 4:42 PM PDT Station ID: [id number]
[2021-12-28] MEDS ORDERED: HYDROmorphone 0.5 MG/0.5 ML SYRINGE IVP STA (17:28)
[2021-12-28] MEDS ORDERED: HYDROcod/ACETAM 5/325 MG TABLET PO STA (17:33)
[2021-12-28 18:19] VITALS: BP 138/81
[2021-12-28] MEDS ORDERED: HYDROcod/ACET 5/325 Prepack 4 PO STA (18:33)
[2021-12-28] MEDS ORDERED: ONDANSETRON ODT 4 MG Prepack 2 TL PRN (18:33)
== END 2021-12-28 18:45 | disposition home or self-care (01) ==
LOC: ED 12:03
DX: S39.011A Strain of muscle, fascia and tendon of abdomen, initial encounter (principal); X58.XXXA Exposure to other specified factors, initial encounter
CPT/HCPCS: 36415; 72192; 80053; 81001; 83690; 85025; 96372; 99284; A9270; 81003; 87086

== ENCOUNTER 2022-07-30 09:25 | Outpatient (CLI) | payer OTHER ==
[2022-07-30 14:53] LABS: BASOPHILS % (AUTO) 0.9 %; EOSINOPHILS % (AUTO) 0.9 %; HCT - HEMATOCRIT 41.5 % (37.0-47.0); HGB - HEMOGLOBIN 13.7 g/dL (12.0-16.0); LYMPHOCYTES # (AUTO) 0.6 10^3/uL (1.5-3.5); LYMPHOCYTES % (AUTO) 17.7 %; MEAN CORPUSCULAR HEMOGLOBIN 29.8 pg (27.0-31.0); MEAN CORPUSCULAR VOLUME 90.2 fL (81.0-99.0); MEAN PLATELET VOLUME 9.8 fL (7.9-10.8); MONOCYTES # (AUTO) 0.3 10^3/uL (0.0-1.0); MONOCYTES % (AUTO) 9.8 %; NEUTROPHILS # (AUTO) 2.3 10^3/uL (1.5-6.6); NEUTROPHILS % (AUTO) 70.4 %; PLT - PLATELET COUNT 185 10^3/uL (130-450); RED CELL DISTRIBUTION WIDTH 13.2 % (12.0-15.0); WHITE BLOOD COUNT 3.3 x10^3/uL (4.8-10.8)
[2022-07-30 15:12] LABS: ALBUMIN 4.7 g/dL (3.2-5.5); ALBUMIN/GLOBULIN RATIO 1.6 (1.0-2.2); ALKALINE PHOSPHATASE 121 IU/L (42-121); ALT ALANINE AMINOTRANSFERASE 132 IU/L (10-60); AST ASPARTATE AMINOTRANSFERASE 80 IU/L (10-42); BILIRUBIN,TOTAL 0.7 mg/dL (0.2-1.0); BUN - BLOOD UREA NITROGEN 20 mg/dL (6-20); CALCIUM 9.5 mg/dL (8.5-10.3); CARBON DIOXIDE - CO2 26 mmol/L (21-32); CHLORIDE 97 mmol/L (101-111); CHOL/HDL RATIO 2.1 (<4.4); CHOLESTEROL 270 mg/dL; CREATININE 0.6 mg/dL (0.4-1.0); GFR - MDRD 102 (>89); GLUCOSE 101 mg/dL (70-100); HDL CHOLESTEROL 126 mg/dL; LDL CHOLESTEROL,CALCULATED 133 mg/dL; LDL/HDL RATIO 1.1 (<4.4); POTASSIUM 4.2 mmol/L (3.5-5.0); SODIUM 133 mmol/L (135-145); TOTAL PROTEIN 7.7 g/dL (6.7-8.2); TRIGLYCERIDES 54 mg/dL; VLDL CHOLESTEROL 11 mg/dL
[2022-07-30 15:24] LABS: THYROID STIMULATING HORMONE 7.67 uIU/mL (0.34-5.60)
[2022-07-30 16:16] LABS: FREE T4 (FREE THYROXINE) 0.77 ng/dL (0.58-1.64)
== END 2022-07-30 09:26 | disposition home or self-care (01) ==
LOC: LAB.S 09:25
PROVIDERS: ATTEND Registered Nurse
DX: E03.9 Hypothyroidism, unspecified (principal); Z13.29 Encounter for screening for other suspected endocrine disorder; Z79.899 Other long term (current) drug therapy; Z13.220 Encounter for screening for lipoid disorders
CPT/HCPCS: 36415; 80053; 80061; 83721; 84439; 84443; 85025

== ENCOUNTER 2022-08-14 15:08 | Outpatient (CLI) | payer OTHER ==
--- NOTE | 2022-08-16 10:22 | Mammography Report ---
BILATERAL DIGITAL SCREENING MAMMOGRAM 3D/2D WITH AUGMENTATION: 08/14/2022 CLINICAL: Routine screening. Comparison is made to exams dated: 05/03/2021 mammogram and 01/01/2012 mammogram - [facility]. Both breasts are heterogeneously dense, which may obscure small masses (category c / 51-75% glandular tissue). Bilateral breast implants are present. No significant masses, calcifications, or other findings are seen in either breast. There has been no significant interval change. IMPRESSION: BENIGN There is no mammographic evidence of malignancy. A 1 year screening mammogram is recommended. Based on the Tyrer Cuzick model (a risk assessment model) the patients lifetime risk is 9.1% and her 10 year risk is 3.8%. According to the ACR, ACS, and NCCN guidelines, an annual breast MRI exam lio g with mammogram is recommended if the patients lifetime risk is 20% or greater. This exam was interpreted at Station ID: [id number]. NOTE: For mammograms, a report in lay terms will be sent to the patient. Approximately 15% of breast malignancies will not be visualized mammographically. In the management of a palpable breast mass, a negative mammogram must not discourage biopsy of a clinically suspicious lesion. Electronically Signed By: Gregg deng/shazia:08/15/2022 10:44:42 letter sent: No_Letter ACR BI-RADS Category 2: Benign Finding(s) 3342F PARENCHYMAL PATTERN: (D) - The breast(s) demonstrate(s) heterogeneously dense fibroglandular bobby murdock. BI-RADS CATEGORY: (2) - 2 Mammogram [id number] 1 year screening LATERALITY: (B)
== END 2022-08-14 15:09 | disposition home or self-care (01) ==
LOC: DI.S 15:08
PROVIDERS: ATTEND Registered Nurse
DX: Z12.31 Encounter for screening mammogram for malignant neoplasm of breast (principal); Z98.82 Breast implant status

== ENCOUNTER 2023-07-05 13:37 | Emergency (ER) | payer OTHER ==
[2023-07-05 14:39] LABS: BASOPHILS # (AUTO) 0.1 10^3/uL (0.0-0.1); BASOPHILS % (AUTO) 1.4 %; EOSINOPHILS # (AUTO) 0.1 10^3/uL (0.0-0.7); HCT - HEMATOCRIT 41.9 % (37.0-47.0); LYMPHOCYTES # (AUTO) 1.5 10^3/uL (1.5-3.5); LYMPHOCYTES % (AUTO) 30.7 %; MEAN CORPUSCULAR HEMOGLOBIN 30.7 pg (27.0-31.0); MEAN CORPUSCULAR HGB CONC 33.4 g/dL (32.0-36.0); MEAN CORPUSCULAR VOLUME 91.9 fL (81.0-99.0); MEAN PLATELET VOLUME 8.8 fL (7.9-10.8); MONOCYTES # (AUTO) 0.4 10^3/uL (0.0-1.0); MONOCYTES % (AUTO) 8.8 %; NEUTROPHILS # (AUTO) 2.8 10^3/uL (1.5-6.6); NEUTROPHILS % (AUTO) 56.7 %; PLT - PLATELET COUNT 218 10^3/uL (130-450); RED BLOOD COUNT 4.56 10^6/uL (4.20-5.40); RED CELL DISTRIBUTION WIDTH 12.9 % (12.0-15.0); WHITE BLOOD COUNT 4.9 x10^3/uL (4.8-10.8)
[2023-07-05] MEDS ORDERED: DROPERIDOL 5 MG/2 ML VIAL IVP STA (14:48)
[2023-07-05] MEDS ORDERED: HYDROmorphone 1 MG/ML CARPUJECT IVP STA ×2 (14:48→18:31)
[2023-07-05] MEDS ORDERED: SODIUM CHLORIDE 0.9% 1,000 ML IV STA (14:49)
[2023-07-05 15:30] LABS: ALBUMIN 4.5 g/dL (3.2-5.5); ALBUMIN/GLOBULIN RATIO 1.7 (1.0-2.2); BILIRUBIN,TOTAL 0.4 mg/dL (0.2-1.0); CALCIUM 9.1 mg/dL (8.5-10.3); CREATININE 0.5 mg/dL (0.6-1.3); POTASSIUM 4.1 mmol/L (3.5-4.5); TOTAL PROTEIN 7.2 g/dL (6.4-8.9)
[2023-07-05] MEDS ORDERED: HYDROmorphone 0.5 MG/0.5 ML SYRINGE IVP STA (16:13)
[2023-07-05] MEDS ORDERED: LIDOCAINE-MPF 2% 6 ML in SODIUM CHLORIDE 0.9% 50 ML IV STA (16:13)
[2023-07-05 16:47] LABS: BILIRUBIN,URINE NEGATIVE (NEGATIVE); GLUCOSE, URINE (UA) NEGATIVE (NEGATIVE); KETONES,URINE (UA) NEGATIVE (NEGATIVE); LEUKOCYTE ESTERASE, URINE NEGATIVE (NEGATIVE); NITRITE,URINE NEGATIVE (NEGATIVE); OCCULT BLOOD,URINE NEGATIVE (NEGATIVE); PROTEIN,URINE NEGATIVE (NEGATIVE); UROBILINOGEN,URINE 0.2 (NORMAL) E.U./dL (NORMAL)
[2023-07-05 16:50] LABS: CLARITY,URINE CLEAR (CLEAR)
--- NOTE | 2023-07-05 17:06 | ED Physician Documentation ---
PD HPI ABD PAIN - Stated complaint Stated Complaint: L FLANK PX - Chief complaint Chief Complaint: Abd Pain - History obtained from History obtained from: Patient - History of Present Illness Timing - onset: How many days ago (2-3) Timing - duration: Days (2-3) Timing - details: Gradual onset (onset right flank pain 2-3 days ago moderate that worsened last night and overnight to severe. Not assoicated with inspiration, eating, nor palpation. Some worse with movement but consistent when staying still position.) Quality: Sharp, Pain Location: RLQ (mainly right flank but extending to right mid to lower abd since last night.) Radiation: Right flank Review of Systems Constitutional: denies: Fever, Chills GI: reports: Abdominal Pain, Nausea. denies: Vomiting, Constipation, Diarrhea : denies: Dysuria, Discharge Skin: denies: Rash, Lesions Musculoskeletal: reports: Back pain (right flank.). 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 : Kidney stones HEENT: None Psych: Depression, Anxiety Musculoskeletal: None Derm: None - Past Surgical History Past Surgical History: Yes General: Cholecystectomy, Appendectomy /NETWORK PROFESSIONAL: Hysterectomy - Present Medications Home Medications: Ambulatory Orders Medication Instructions Recorded Confirmed HYDROcod/ACETAM 5/325 [[place] 5/325] 1 ea PO Q6H PRN #18 tablet 07/05/23 Levothyroxine Sodium 137 mcg PO DAILY 07/05/23 07/05/23 Meloxicam [Mobic] 7.5 mg PO BID 10 Days #20 tablet 07/05/23 Ondansetron Odt [Zofran] 4 mg TL Q6H PRN #10 tablet 07/05/23 Venlafaxine ER [Effexor ER] 150 mg PO DAILY 07/05/23 07/05/23 HYDROcod/ACETAM 5/325 [[place] 5/325] 1 ea PO Q6H PRN #18 tablet 07/06/23 - Allergies Allergies/Adverse Reactions: Allergies Allergy/AdvReac Type Severity Reaction Status Date / Time prochlorperazine edisylate * Allergy Severe paralysis Verified 07/05/23 14:16 [From Compazine] prochlorperazine maleate * Allergy Severe paralysis Verified 07/05/23 14:16 [From Compazine] Penicillins Allergy Unknown Rash Verified 07/05/23 14:16 Sulfa (Sulfonamide Allergy Unknown Nausea Verified 07/05/23 14:16 Antibiotics) - Social History Does the pt smoke?: No Smoking Status: Never smoker Does the pt drink ETOH?: Yes Does the pt have substance abuse?: No - Immunizations Immunizations are current?: Yes - POLST Patient has POLST: No PD ED PE NORMAL - Vitals Vital signs reviewed: Yes - General General: Alert and oriented X 3, Well developed/nourished, Other (appears in marked pain with right flank and lateral abd. ) Results - Vitals Vitals: Oxygen O2 Source Room air - Labs Labs: Laboratory Tests 07/05/23 07/05/23 07/05/23 14:34 14:34 16:39 WBC 4.9 RBC 4.56 Hgb 14.0 Hct 41.9 MCV 91.9 MCH 30.7 MCHC 33.4 RDW 12.9 Plt Count 218 MPV 8.8 Neut # (Auto) 2.8 Lymph # (Auto) 1.5 [place] # (Auto) 0.4 Eos # (Auto) 0.1 Baso # (Auto) 0.1 Absolute Nucleated RBC 0.00 Nucleated RBC % 0.0 Sodium 139 Potassium 4.1 Chloride 106 Carbon Dioxide 21 Anion Gap 12.0 BUN 11 Creatinine 0.5 L Estimated GFR (MDRD) 125 Glucose 105 H Calcium 9.1 Total Bilirubin 0.4 AST 280 H ALT 114 H Alkaline Phosphatase 111 Total Protein 7.2 Albumin 4.5 Globulin 2.7 Albumin/Globulin Ratio 1.7 Lipase 198 H Urine Color STRAW Urine Clarity CLEAR Urine pH 6.0 Ur Specific [place] <=1.005 Urine Protein NEGATIVE Urine Glucose (UA) NEGATIVE Urine Ketones NEGATIVE Urine Occult Blood NEGATIVE Urine Nitrite NEGATIVE Urine Bilirubin NEGATIVE Urine Urobilinogen 0.2 (NORMAL) Ur Leukocyte Esterase NEGATIVE Ur Microscopic Review NOT INDICATED Urine Culture Comments NOT INDICATED PD Medical Decision Making - ED course Complexity details: reviewed results (CT did not show obvious cause for the pain. No noted hydro nor stones. Aorta appears normal. Prior CCY and appy. ), re-evaluated patient (she is having decreased pain with IV toradol, Zofran, Dilaudid, but only moderately. Repeat doses of pain meds given. Presuming kidney stone initially, also gave IV dose Lidocaine for stones. Still mostly better but not resolved. At this point, shared discussion to get CT to eval. ), considered differential (The character of the pain seems kidney stone and she states is similar to prior one. However the pain was notimproving readily with pain med, so shared discussion to get CT to better eval. ), d/w patient Reviewed Lab Results: CT did not show stones. It hav been a few hours from time of med treatment and deciding on CT since difficulty getting complete relief. Consider if may have been a stone that passed as she was much improved. However, cannot account with certitude the cause for the pain. No skin sensitive nor rash, but only 2 days of pain, so still consider early shingle in lieu of no objective findings otherwise. Consider neruitis from other causes. Consider muscular though not movement enhanced. Gave short course NSAIDs and pain meds. She does not have recent prior visits and no KAVON so not apparent med seeking. UA without infection. CBC with normal white count and Hgb. Chemistry panel with nromal LFTs and lytes. Normal renal function. These were reviewed by me. Drug Therapy Requiring Monitoring for Toxicity: given doses IV fluids, pain meds and antiemetics without any untoward side effects. Departure - Departure Disposition: 01 Home, Self Care Clinical Impression: Right sided abdominal pain Condition: Stable Record reviewed to determine appropriate education?: Yes Instructions: ED Flank Pain Uncertain Cause Follow-Up: Princess Thompson ARNP [Primary Care Provider] - Prescriptions: Meloxicam [Mobic] 7.5 mg PO BID 10 Days #20 tablet HYDROcod/ACETAM 5/325 [[place] 5/325] 1 ea PO Q6H PRN #18 tablet PRN Reason: Pain HYDROcod/ACETAM 5/325 [[place] 5/325] 1 ea PO Q6H PRN #18 tablet PRN Reason: Pain Ondansetron Odt [Zofran] 4 mg TL Q6H PRN #10 tablet PRN Reason: Nausea / Vomiting Comments: The CT scan reading from the radiologist did not show a cause for your pain. Incidental finding was a small cyst or nodule on your adrenal gland which is relatively common. Have your primary care follow-up on this. Sometimes it will be a suggestion for a repeat imaging such as ultrasound and 6 months to a year to ensure it is not getting bigger etc. This would not account for your pain. Considerations for the pain could be musculoskeletal or nerve type pain such as early shingles. See how you do over the next couple of days and if any other symptoms develop. Other considerations would be a small kidney stone that passed prior to the CT imaging here in the ER. With the continued pain, I would suggest using anti-inflammatories. I wrote for 1 called meloxicam which is just twice daily with food for the next several days to week. Ondansetron if needed for nausea. Add Tylenol every 4-6 hours if needed for pain or hydrocodone/acetaminophen if needed for worse pain. I sent prescriptions to the [facility] pharmacy here in [place]. Follow-up for recheck if not improved completely over the next few days and return to the ER if worse pain despite the medications or new symptoms develop. My narcotic instructionsI am prescribing a short course of narcotic pain medication for you. These are potentially dangerous and addictive medications that should be used carefully. These medications may constipate you. Take an hirq-sbd-nyerhfr stool softener such as docusate twice daily with plenty of water while taking these medications. If you go 24 hours without a bowel movement, take fijp-spq-hloagme MiraLAX, per package instructions. Do not drink or drive while taking these medications. If you received narcotic or sedating medications while in the emergency department do not drive for 24 hours. Store this medication in a safe, secure place and out of reach of children. It is a violation of federal law to give or sell this medication to another person or to use in a manner other than prescribed. The ED will not refill narcotic prescriptions, including prescriptions lost or stolen. You can dispose of unwanted medications at the [facility] office or at several pharmacies such as [facility]. Forms: PCP List Discharge Date/Time: 07/05/23 19:02
--- NOTE | 2023-07-05 17:38 | CT Report ---
PROCEDURE: Abdomen/Pelvis WO INDICATIONS: right flank/abd pain, ? stone TECHNIQUE: A CT scan of the abdomen and pelvis was performed without the use of intravenous contrast. Images we re recorded and evaluated at appropriate window settings. Reformats: coronal and sagittal. For radiat ion dose reduction, the following was used: automated exposure control, adjustment of mA and/or kV ac cording to patient size. COMPARISON: CT pelvis, 12/20/2021. CT abdomen and pelvis with, 07/05/2021.. FINDINGS: Image quality: Diagnostic. Lower chest: Bibasilar scars and atelectasis. Small hiatal hernia. Note made of bilateral breast impl ants. Liver: No contour-deforming mass. Gallbladder and biliary tree: Gallbladder is surgically removed. No biliary dilation. Spleen: No splenomegaly. Pancreas: No pancreatic ductal dilation. Adrenals: There is a 1.5 x 1.0 cm right adrenal nodule, demonstrating CT density 8.2, compared with a small adrenal adenoma. Kidneys and ureters: No hydronephrosis. No renal cystic lesion which requires follow up. No solid mas s. Stomach, bowel and peritoneum: No bowel distension. No pathologic free fluid. Appendix is not identif ied. No secondary signs for acute appendicitis. Lymph nodes: No central or retroperitoneal adenopathy. Vessels: No infrarenal aortic aneurysm. PELVIS Reproductive organs: Unremarkable. Bladder: No wall thickness, accounting for underdistention. Pelvic lymph nodes: No pelvic adenopathy by size criteria. Bones: No aggressive osseous abnormality. Other: No significant ventral or inguinal hernia. IMPRESSION: 1. No hydronephrosis or obstructing renal stone. A cause for right flank pain is not identified. 2. A small adrenal adenoma. 3. Small hiatal hernia. Reviewed by: Randy Montilla MD on 07/05/2023 5:37 PM PST Approved by: Randy Montilla MD on 07/05/2023 5:37 PM PST Station ID: [id number]
[2023-07-05] MEDS ORDERED: ACETAMINOPHEN 500 MG TABLET PO STA (18:31)
[2023-07-05 19:08] VITALS: BP 129/83; O2SAT 95
== END 2023-07-05 19:02 | disposition home or self-care (01) ==
LOC: EDUNIT# → EDBD → ED 13:37
DX: R10.31 Right lower quadrant pain (principal)
CPT/HCPCS: 36415; 74176; 80053; 81003; 83690; 85025; 96365; 96375; 96376; 99283; 99284; A9270; J1170; J7040; 81001; 87086

== ENCOUNTER 2023-07-23 16:30 | Outpatient (CLI) | payer OTHER ==
[2023-07-23 16:48] LABS: BASOPHILS # (AUTO) 0.1 10^3/uL (0.0-0.1); BASOPHILS % (AUTO) 1.3 %; EOSINOPHILS # (AUTO) 0.1 10^3/uL (0.0-0.7); EOSINOPHILS % (AUTO) 2.2 %; HCT - HEMATOCRIT 40.9 % (37.0-47.0); HGB - HEMOGLOBIN 13.7 g/dL (12.0-16.0); LYMPHOCYTES # (AUTO) 1.4 10^3/uL (1.5-3.5); LYMPHOCYTES % (AUTO) 26.4 %; MEAN CORPUSCULAR HEMOGLOBIN 30.6 pg (27.0-31.0); MEAN CORPUSCULAR HGB CONC 33.5 g/dL (32.0-36.0); MEAN CORPUSCULAR VOLUME 91.5 fL (81.0-99.0); MEAN PLATELET VOLUME 9.1 fL (7.9-10.8); MONOCYTES # (AUTO) 0.4 10^3/uL (0.0-1.0); MONOCYTES % (AUTO) 7.6 %; NEUTROPHILS # (AUTO) 3.3 10^3/uL (1.5-6.6); NEUTROPHILS % (AUTO) 62.1 %; PLT - PLATELET COUNT 208 10^3/uL (130-450); RED BLOOD COUNT 4.47 10^6/uL (4.20-5.40); RED CELL DISTRIBUTION WIDTH 12.8 % (12.0-15.0); WHITE BLOOD COUNT 5.4 x10^3/uL (4.8-10.8)
[2023-07-23 17:11] LABS: ALBUMIN 4.9 g/dL (3.2-5.5); ALBUMIN/GLOBULIN RATIO 1.8 (1.0-2.2); ALKALINE PHOSPHATASE 93 IU/L (42-121); ALT ALANINE AMINOTRANSFERASE 48 IU/L (10-60); AST ASPARTATE AMINOTRANSFERASE 40 IU/L (10-42); BILIRUBIN,TOTAL 0.3 mg/dL (0.2-1.0); BUN - BLOOD UREA NITROGEN 16 mg/dL (6-20); CALCIUM 10.1 mg/dL (8.5-10.3); CARBON DIOXIDE - CO2 28 mmol/L (21-32); CHLORIDE 101 mmol/L (101-111); CHOL/HDL RATIO 2.1 (<4.4); CHOLESTEROL 249 mg/dL; CREATININE 0.6 mg/dL (0.6-1.3); GFR - MDRD 101 (>89); GLUCOSE 103 mg/dL (74-104); HDL CHOLESTEROL 116 mg/dL; LDL CHOLESTEROL,CALCULATED 88 mg/dL; LDL/HDL RATIO 0.8 (<4.4); POTASSIUM 3.6 mmol/L (3.5-4.5); SODIUM 137 mmol/L (135-145); TOTAL PROTEIN 7.7 g/dL (6.4-8.9); TRIGLYCERIDES 227 mg/dL (48-352); VLDL CHOLESTEROL 45 mg/dL
[2023-07-23 17:24] LABS: THYROID STIMULATING HORMONE 7.61 uIU/mL (0.34-5.60)
== END 2023-07-23 16:31 | disposition home or self-care (01) ==
LOC: LAB 16:30
PROVIDERS: ATTEND Registered Nurse
DX: Z13.29 Encounter for screening for other suspected endocrine disorder (principal); Z79.899 Other long term (current) drug therapy
CPT/HCPCS: 36415; 80053; 80061; 83721; 84439; 84443; 85025

== ENCOUNTER 2023-07-24 11:43 | Emergency (ER) | payer OTHER ==
[2023-07-24 12:35] LABS: BASOPHILS # (AUTO) 0.1 10^3/uL (0.0-0.1); BASOPHILS % (AUTO) 1.1 %; EOSINOPHILS # (AUTO) 0.1 10^3/uL (0.0-0.7); EOSINOPHILS % (AUTO) 1.8 %; HGB - HEMOGLOBIN 13.7 g/dL (12.0-16.0); LYMPHOCYTES # (AUTO) 1.3 10^3/uL (1.5-3.5); LYMPHOCYTES % (AUTO) 23.2 %; MEAN CORPUSCULAR HEMOGLOBIN 30.9 pg (27.0-31.0); MEAN CORPUSCULAR HGB CONC 33.4 g/dL (32.0-36.0); MEAN CORPUSCULAR VOLUME 92.6 fL (81.0-99.0); MEAN PLATELET VOLUME 8.8 fL (7.9-10.8); MONOCYTES # (AUTO) 0.4 10^3/uL (0.0-1.0); MONOCYTES % (AUTO) 6.4 %; NEUTROPHILS # (AUTO) 3.8 10^3/uL (1.5-6.6); NEUTROPHILS % (AUTO) 67.3 %; PLT - PLATELET COUNT 199 10^3/uL (130-450); RED BLOOD COUNT 4.43 10^6/uL (4.20-5.40); WHITE BLOOD COUNT 5.6 x10^3/uL (4.8-10.8)
[2023-07-24 12:48] LABS: ALBUMIN 4.8 g/dL (3.2-5.5); ALBUMIN/GLOBULIN RATIO 1.8 (1.0-2.2); ALKALINE PHOSPHATASE 93 IU/L (42-121); ALT ALANINE AMINOTRANSFERASE 57 IU/L (10-60); AST ASPARTATE AMINOTRANSFERASE 53 IU/L (10-42); BILIRUBIN,TOTAL 0.3 mg/dL (0.2-1.0); BUN - BLOOD UREA NITROGEN 14 mg/dL (6-20); CALCIUM 9.7 mg/dL (8.5-10.3); CARBON DIOXIDE - CO2 27 mmol/L (21-32); CHLORIDE 101 mmol/L (101-111); CREATININE 0.5 mg/dL (0.6-1.3); GFR - MDRD 125 (>89); GLUCOSE 94 mg/dL (74-104); POTASSIUM 4.2 mmol/L (3.5-4.5); SODIUM 136 mmol/L (135-145); TOTAL PROTEIN 7.4 g/dL (6.4-8.9)
[2023-07-24 13:05] LABS: LIPASE < 10 U/L (11-82)
[2023-07-24 13:27] LABS: BILIRUBIN,URINE NEGATIVE (NEGATIVE); GLUCOSE, URINE (UA) NEGATIVE (NEGATIVE); KETONES,URINE (UA) NEGATIVE (NEGATIVE); LEUKOCYTE ESTERASE, URINE NEGATIVE (NEGATIVE); NITRITE,URINE NEGATIVE (NEGATIVE); OCCULT BLOOD,URINE NEGATIVE (NEGATIVE); PROTEIN,URINE NEGATIVE (NEGATIVE); UROBILINOGEN,URINE 0.2 (NORMAL) E.U./dL (NORMAL)
[2023-07-24 13:29] LABS: CLARITY,URINE CLEAR (CLEAR)
--- NOTE | 2023-07-24 14:10 | ED Physician Documentation ---
PD HPI ABD PAIN - Stated complaint Stated Complaint: ABD PX,VOMIT,NAUSEA - Chief complaint Chief Complaint: Abd Pain - History obtained from History obtained from: Patient - History of Present Illness Timing - onset: How many weeks ago (couple of weeks of upper abd pain. Initially seemed mid to lower but has been more persistent upper abd, worse with eating. s/p CCY. had elevated lipase last week to 100s. LFTs normal. CT abd had looked okay though.) Timing - details: Gradual onset, Still present (has had some upper abd pain for the past week to varying degree. Worse after eating.), Waxing and waning Quality: Cramping, Aching, Pain Location: RUQ, Epigastric Improved by: Laying still. No: Eating Worsened by: Eating, Moving. No: Breathing Associated symptoms: Nausea. No: Fever, Vomiting, Diarrhea, Melena Recently seen: Emergency Dept Review of Systems Constitutional: denies: Fever, Chills Cardiac: denies: Chest pain / pressure, Palpitations Respiratory: denies: Dyspnea, Cough GI: reports: Abdominal Pain, Nausea. 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 : Kidney stones HEENT: None Psych: Depression, Anxiety Musculoskeletal: None Derm: None - Past Surgical History Past Surgical History: Yes General: Cholecystectomy, Appendectomy /CASING OPERATOR: Hysterectomy - Present Medications Home Medications: Ambulatory Orders Medication Instructions Recorded Confirmed Levothyroxine Sodium 137 mcg PO DAILY 07/05/23 07/24/23 Meloxicam [Mobic] 7.5 mg PO BID 10 Days #20 tablet 07/05/23 07/24/23 Venlafaxine ER [Effexor ER] 150 mg PO DAILY 07/05/23 07/24/23 Famotidine [Pepcid] 20 mg PO BID #60 tablet 07/24/23 HYDROcod/ACETAM 5/325 [[place] 5/325] 1 - 2 ea PO Q6H PRN #14 tablet 07/24/23 Ondansetron Odt [Zofran] 4 mg TL Q6H PRN #10 tablet 07/24/23 Pantoprazole [Protonix] 40 mg PO DAILY 30 Days #30 tablet 07/24/23 Sucralfate [Carafate] 1 gm PO ACHS #60 tablet 07/24/23 - Allergies Allergies/Adverse Reactions: Allergies Allergy/AdvReac Type Severity Reaction Status Date / Time prochlorperazine edisylate * Allergy Severe paralysis Verified 07/24/23 12:01 [From Compazine] prochlorperazine maleate * Allergy Severe paralysis Verified 07/24/23 12:01 [From Compazine] Penicillins Allergy Unknown Rash Verified 07/24/23 12:01 Sulfa (Sulfonamide Allergy Unknown Nausea Verified 07/24/23 12:01 Antibiotics) - Social History Does the pt smoke?: No Smoking Status: Never smoker Does the pt drink ETOH?: Yes Does the pt have substance abuse?: No - Immunizations Immunizations are current?: Yes - POLST Patient has POLST: No PD ED PE NORMAL - Vitals Vital signs reviewed: Yes - General General: Alert and oriented X 3, Well developed/nourished, Other (appears in pain upper abd. ) - Cardiac Cardiac: RRR, No murmur - Respiratory Respiratory: Clear bilaterally - Abdomen Abdomen: Normal bowel sounds, Soft, Non distended, No organomegaly, Other (tender RUQ and epigastric without percussion nor rebound tenderness. ) - Derm Derm: Normal color, Warm and dry Results - Vitals Vitals: Vital Signs - 24 hr 07/24/23 07/24/23 07/24/23 11:55 14:41 16:00 Temperature 36 C L 36.8 C Heart Rate 94 92 100 Respiratory 16 16 15 Rate Blood Pressure 152/91 H 149/94 H 136/85 H O2 Saturation 96 97 98 07/24/23 18:00 Temperature Heart Rate 93 Respiratory 16 Rate Blood Pressure 112/67 O2 Saturation 93 Oxygen O2 Source Room air - Labs Labs: Laboratory Tests 07/24/23 07/24/23 07/24/23 12:05 12:25 12:25 WBC 5.6 RBC 4.43 Hgb 13.7 Hct 41.0 MCV 92.6 MCH 30.9 MCHC 33.4 RDW 13.0 Plt Count 199 MPV 8.8 Neut # (Auto) 3.8 Lymph # (Auto) 1.3 [place] # (Auto) 0.4 Eos # (Auto) 0.1 Baso # (Auto) 0.1 Absolute Nucleated RBC 0.00 Nucleated RBC % 0.0 Sodium 136 Potassium 4.2 Chloride 101 Carbon Dioxide 27 Anion Gap 8.0 BUN 14 Creatinine 0.5 L Estimated GFR (MDRD) 125 Glucose 94 Calcium 9.7 Total Bilirubin 0.3 AST 53 H ALT 57 Alkaline Phosphatase 93 Total Protein 7.4 Albumin 4.8 Globulin 2.6 Albumin/Globulin Ratio 1.8 Lipase < 10 L Urine Color LIGHT YELLOW Urine Clarity CLEAR Urine pH 6.0 Ur Specific [place] <=1.005 Urine Protein NEGATIVE Urine Glucose (UA) NEGATIVE Urine Ketones NEGATIVE Urine Occult Blood NEGATIVE Urine Nitrite NEGATIVE Urine Bilirubin NEGATIVE Urine Urobilinogen 0.2 (NORMAL) Ur Leukocyte Esterase NEGATIVE Ur Microscopic Review NOT INDICATED Urine Culture Comments NOT INDICATED PD Medical Decision Making - ED course Complexity details: reviewed results (labs good today. Pending US of RUQ to eval common bile duct.), considered differential (continued abd pain, mainly upper right now. Had CT abd last week wtihout obvious acute findings. Elevated lipase but is normal today. consider CBD sludging/clogging and can get US. ), d/w patient Drug Therapy Requiring Monitoring for Toxicity: given IV meds for nausea and pain here today. ED course: Care to Dr. Galeas at change of shift. Pending US results. Departure - Departure Disposition: 01 Home, Self Care Clinical Impression: Upper abdominal pain, Gastritis and duodenitis Condition: Stable Instructions: ED PUD Vs Gastritis Follow-Up: your,doctor in 1 week [Other] Prescriptions: Sucralfate [Carafate] 1 gm PO ACHS #60 tablet HYDROcod/ACETAM 5/325 [[place] 5/325] 1 - 2 ea PO Q6H PRN #14 tablet PRN Reason: Pain Famotidine [Pepcid] 20 mg PO BID #60 tablet Pantoprazole [Protonix] 40 mg PO DAILY 30 Days #30 tablet Ondansetron Odt [Zofran] 4 mg TL Q6H PRN #10 tablet PRN Reason: Nausea / Vomiting Comments: Your lab test today are normal with a normal lipase. Your CT scan from previous visit did not show any signs of inflammation of the pancreas. Where ultrasound in your abdomen today to see if there is any signs of sludge or blockage in the common bile duct. Intermittent sludging of this could cause a transient bump in liver or pancreas enzymes. Concern would be more consistent sludging or decreased flow causing the pains you are having. Otherwise the pains you are having is more likely coming from your irritation of the stomach and/or first part of the intestine called the duodenum. We can treat this with a combination of some acid reducing medicine in combination with the medication to coat the stomach. I would suggest pantoprazole daily for the next few weeks and sucralfate 4 times daily for the next week. Add Tylenol every 4-6 hours if needed. Your prescriptions were sent to the [facility] pharmacy. As we discussed you likely have gastritis versus duodenitis. Your doctor should refer you for an endoscopy to confirm. Please avoid alcohol, caffeine, nonsteroidal anti-inflammatory medication such as Motrin, Aleve, etc. I am prescribing a short course of narcotic pain medication for you. These are potentially dangerous and addictive medications that should be used carefully. These medications may constipate you. Take an gpny-pgy-dbicdqc stool softener (docusate) twice daily with plenty of water while taking these medications. If you go 24 hours without a bowel movement, take knel-gty-udpqsvh miralax, per package instructions. Do not drink or drive while taking these medications. If you received narcotic or sedating medications while in the emergency department, do not drive for 24 hours. Store this medication in a safe, secure place and out of reach of children. It is a violation of federal law to give or sell this medication to another person or to use in a manner other than prescribed. The ED will not refill narcotic prescriptions, including prescriptions lost or stolen. To dispose of unwanted medications: 1. [facility] at [address] in [place] has a medication drop box. They accept prescription medications (in pill form) Saturday through Saturday 9:00 a.m. to 5:00 p.m. 2. The [facility] accepts prescription medications (in pill form only) for disposal year round. Call for more information. 3. Contact the [facility] for the next [facility] sponsored prescription dr gm roberts event. , [phone], or [phone];. Forms: PCP List Discharge Date/Time: 07/24/23 20:50
[2023-07-24] MEDS: KETOROLAC 15 MG/ML VIAL IVP STA (14:46)
[2023-07-24] MEDS: HYDROmorphone 1 MG/ML CARPUJECT IVP STA ×4 (14:47→20:04)
[2023-07-24] MEDS: SODIUM CHLORIDE 0.9% 1,000 ML IV STA (14:47)
[2023-07-24] MEDS: ONDANSETRON 4 MG/2 ML VIAL IVP STA ×2 (14:47→20:38)
[2023-07-24] MEDS: MAG HYDROX/AL HYDROX/SIMETH 30 ML UDC PO STA (15:36)
[2023-07-24] MEDS: FAMOTIDINE 20 MG/2 ML VIAL IVP STA (15:36)
[2023-07-24] MEDS: PANTOPRAZOLE 40 MG VIAL IVP STA (15:36)
--- NOTE | 2023-07-24 17:02 | Ultrasound Report ---
PROCEDURE: Abdomen Limited INDICATIONS: RUQ/epigastric pain TECHNIQUE: Real-time focused scanning was performed of the abdomen, with image documentation. COMPARISONS: None. FINDINGS: Liver: Liver is normal in size and homogeneous in echotexture. Gallbladder: Surgically absent Biliary ducts: Intrahepatic bile ducts are non-dilated. Extrahepatic bile duct caliber measures 12 mm. Normal is 6-7 mm or less in diameter, or 10 mm or less post-cholecystectomy. Pancreas: There is mild distention of the pancreatic duct measuring 4 mm. Right kidney: Normal in size and echotexture. Right kidney measures cm long. No hydronephrosis or ne phrolithiasis. No solid masses. No complex renal cystic lesions which require follow-up. Aorta: Visualized aorta is normal in caliber at less than 3 cm. IVC: Intrahepatic inferior vena cava is patent. Miscellaneous: No free abdominal fluid. IMPRESSION: 1. Extrahepatic biliary ductal dilatation. 2. Dilated pancreatic duct. 3. ERCP is recommended for further assessment. Reviewed by: Taylor Gonzalez MD on 07/24/2023 5:00 PM PST Approved by: Taylor Gonzalez MD on 07/24/2023 5:00 PM PST Station ID: [id number]
--- NOTE | 2023-07-24 17:37 | ED Physician Documentation ---
ED Addendum - Addendum Addendum: 07/24/23 17:37 Patient was signed out to me by Dr. Potter awaiting ultrasound of her right upper quadrant. Ultrasound does not show any acute abnormalities other than a mildly elevated pancreatic duct, MRCP/ERCP is recommended. MRCP was ordered. MRCP was performed and does not show any significant abnormalities. She does have a mild fatty liver. No evidence of pancreatic duct blockage or dilatation. Likely the patient is having gastritis/ulcer. Uses NSAIDs frequently. Will place on a PPI, H2 jeanie and Carafate for home. Recommend that she follow-up with her doctor for an endoscopy. Tolerating p.o. without difficulty here. Patient is well-appearing, nontoxic. Afebrile. Abdomen is soft, nontender nondistended on serial exam. Patient counseled regarding signs and symptoms for which I believe and urgent re-evaluation would be necessary. Patient with good understanding of and agreement to plan and is comfortable going home at this time This document was made in part using voice recognition software. While efforts are made to proofread this document, sound alike and grammatical errors may occur. Departure - Departure Disposition: 01 Home, Self Care Clinical Impression: Upper abdominal pain, Gastritis and duodenitis Condition: Stable Instructions: ED PUD Vs Gastritis Follow-Up: your,doctor in 1 week [Other] Prescriptions: Sucralfate [Carafate] 1 gm PO ACHS #60 tablet HYDROcod/ACETAM 5/325 [Katy 5/325] 1 - 2 ea PO Q6H PRN #14 tablet PRN Reason: Pain Famotidine [Pepcid] 20 mg PO BID #60 tablet Pantoprazole [Protonix] 40 mg PO DAILY 30 Days #30 tablet Ondansetron Odt [Zofran] 4 mg TL Q6H PRN #10 tablet PRN Reason: Nausea / Vomiting Comments: Your lab test today are normal with a normal lipase. Your CT scan from previous visit did not show any signs of inflammation of the pancreas. Where ultrasound in your abdomen today to see if there is any signs of sludge or blockage in the common bile duct. Intermittent sludging of this could cause a transient bump in liver or pancreas enzymes. Concern would be more consistent sludging or decreased flow causing the pains you are having. Otherwise the pains you are having is more likely coming from your irritation of the stomach and/or first part of the intestine called the duodenum. We can treat this with a combination of some acid reducing medicine in combination with the medication to coat the stomach. I would suggest pantoprazole daily for the next few weeks and sucralfate 4 times daily for the next week. Add Tylenol every 4-6 hours if needed. Your prescriptions were sent to the [facility] pharmacy. As we discussed you likely have gastritis versus duodenitis. Your doctor should refer you for an endoscopy to confirm. Please avoid alcohol, caffeine, nonsteroidal anti-inflammatory medication such as Motrin, Aleve, etc. I am prescribing a short course of narcotic pain medication for you. These are potentially dangerous and addictive medications that should be used carefully. These medications may constipate you. Take an upkw-lkg-mbxnsmp stool softener (docusate) twice daily with plenty of water while taking these medications. If you go 24 hours without a bowel movement, take gwwc-jcl-omxtibp miralax, per package instructions. Do not drink or drive while taking these medications. If you received narcotic or sedating medications while in the emergency department, do not drive for 24 hours. Store this medication in a safe, secure place and out of reach of children. It is a violation of federal law to give or sell this medication to another person or to use in a manner other than prescribed. The ED will not refill narcotic prescriptions, including prescriptions lost or stolen. To dispose of unwanted medications: 1. [facility] at [address] in [place] has a medication drop box. They accept prescription medications (in pill form) Saturday through Saturday 9:00 a.m. to 5:00 p.m. 2. The [facility] [employer] accepts prescription medications (in pill form only) for disposal year round. Call for more information. 3. Contact the [facility] for the next [facility] sponsored prescription drug collection event. , [phone], or [phone];. Forms: PCP List Discharge Date/Time: 07/24/23 20:50
[2023-07-24 18:30] VITALS: BP 112/67; O2SAT 93
[2023-07-24] MEDS ORDERED: GADOTERATE MEGLUMINE 10 MMOL/20 ML VIAL ONE (18:43)
[2023-07-24] MEDS: GADOTERATE MEGLUMINE 10 MMOL/20 ML VIAL IVP ONE (19:41)
--- NOTE | 2023-07-24 19:45 | MRI Report ---
PROCEDURE: MRCP W/WO INDICATIONS: pancreatic duct dilation on US CONTRAST: 14.6ml clariscan TECHNIQUE: Coronal ultra fast SE through the abdomen, axial 2-D spoiled GE in- and lxn-uc-aszrv, and breath-hold T2 FSE with fat saturation through the biliary system and pancreas. Oblique coronal and axial thin- slice ultra fast SE, radial thick-slab ultra fast SE centered on the extrahepatic bile ducts. COMPARISON: CT 2023. Ultrasound 07/24/2023. FINDINGS: Image quality: Excellent. Gallbladder: Surgically absent. Biliary tree: Prominent, but within normal limits accounting for a post-cholecystectomy state. Pancreas: No pancreatic ductal dilation. Pancreatic duct measures 2-3 mm. Lung bases and heart: Unremarkable. Liver: At least moderate hepatic steatosis. Spleen: No splenomegaly. Adrenals: 1.4 cm right adrenal adenoma with signal dropout on out of phase imaging. Kidneys and ureters: No hydronephrosis. No renal cystic lesion which requires follow up. No solid mas s. Bowel and peritoneum: No bowel distension. No pathologic free fluid. Lymph nodes: No central or retroperitoneal adenopathy. Vessels: No infrarenal aortic aneurysm. Bones: No aggressive osseous abnormality. Other: No significant ventral hernia. IMPRESSION: No pancreatic ductal dilation. No obstructing mass identified. Cholecystectomy. Biliary tree measures within normal limits, accounting for a postcholecystectomy sta te. At least moderate hepatic steatosis. Correlate with LFTs, as elevated LFTs may indicate steatohepatit is. Reviewed by: Aleksandar Quesada MD on 07/24/2023 7:44 PM PST Approved by: Aleksandar Quesada MD on 07/24/2023 7:44 PM PST Station ID: [id number]
== END 2023-07-24 20:50 | disposition home or self-care (01) ==
LOC: ED 11:43
DX: K29.70 Gastritis, unspecified, without bleeding (principal); K29.80 Duodenitis without bleeding; K76.0 Fatty (change of) liver, not elsewhere classified; E03.9 Hypothyroidism, unspecified; Z79.899 Other long term (current) drug therapy
CPT/HCPCS: 36415; 74183; 76705; 80053; 81003; 83690; 85025; 96374; 96375; 96376; 99284; 99285; A9270; A9575; J1170; 81001; 87086

== ENCOUNTER 2023-08-22 13:00 | Outpatient (CLI) | payer OTHER ==
--- NOTE | 2023-08-23 09:18 | Mammography Report ---
BILATERAL DIGITAL SCREENING MAMMOGRAM 3D/2D WITH AUGMENTATION: 08/22/2023 CLINICAL: Routine screening. Comparison is made to exams dated: 08/14/2022 mammogram, 05/03/2021 mammogram, and 03/27/2021 mammogra m - [facility]. Both breasts are heterogeneously dense, which may obscure small masses (category c / 51-75% glandular tissue). Bilateral breast implants are present. No significant masses, calcifications, or other findings are seen in either breast. There has been no significant interval change. IMPRESSION: BENIGN There is no mammographic evidence of malignancy. A 1 year screening mammogram is recommended. Based on the Tyrer Cuzick model (a risk assessment model) the patient's lifetime risk is 8.8% and her 10 year risk is 3.8%. According to the ACR, ACS, and NCCN guidelines, an annual breast MRI exam lio g with mammogram is recommended if the patient's lifetime risk is 20% or greater. This exam was interpreted at Station ID: [id number]. NOTE: For mammograms, a report in lay terms will be sent to the patient. Approximately 15% of breast malignancies will not be visualized mammographically. In the management of a palpable breast mass, a negative mammogram must not discourage biopsy of a clinically suspicious lesion. Electronically Signed By: Gregg deng/shazia:08/22/2023 14:13:41 letter sent: No_Letter ACR BI-RADS Category 2: Benign Finding(s) 3342F PARENCHYMAL PATTERN: (D) - The breast(s) demonstrate(s) heterogeneously dense fibroglandular bobby murdock. BI-RADS CATEGORY: (2) - 2 RECOMMENDATION: (ANNUAL) - Recommend routine annual screening mammography. [id number] 1 year screening LATERALITY: (B)
== END 2023-08-22 13:01 | disposition home or self-care (01) ==
LOC: DI 13:00
PROVIDERS: ATTEND Registered Nurse
DX: Z12.31 Encounter for screening mammogram for malignant neoplasm of breast (principal); R92.333 Mammographic heterogeneous density, bilateral breasts; Z98.82 Breast implant status

== ENCOUNTER 2023-09-11 14:29 | Emergency (ER) | payer OTHER ==
--- NOTE | 2023-09-11 15:02 | ED Physician Documentation ---
PD HPI ABD PAIN - Stated complaint Stated Complaint: ABD PX,N/V - Chief complaint Chief Complaint: Abd Pain - History obtained from History obtained from: Patient - Additional information Additional information: This is a 63-year-old woman who presents to the evaluation of abdominal pain. She has had progressive abdominal pain for many months now. More recently has become more frequent and generally worsening. She was seen here in early July for this and had an abdominal CT which showed a small hiatal hernia and a small adrenal adenoma but was otherwise negative. Subsequently on 24 July had an abdominal ultrasound suggestive of extrahepatic biliary ductal dilatation and dilated pancreatic duct but subsequently had an MRCP on the same date that was basically negative except for hepatic steatosis. Pain is in the epigastrium and radiates to the back. It is worse with supine position. Does not seem to worsen with eating. She is getting some relief from medications used for ga stritis/PUD. She denies weight loss. She does have nausea and is vomiting daily as well as having diarrheal stools. She had a remote cholecystectomy maybe 15 years ago. She has a history of alcohol abuse in remission and tells me she is not currently using any alcohol or drugs. She was seen by her primary care physician and she is being referred for an ERCP but there are some delays in the referral. PD PAST MEDICAL HISTORY - Past Medical History Past Medical History: Yes Cardiovascular: None Respiratory: None Neuro: None Endocrine/Autoimmune: HyPOthyroidism GI: GERD, Hepatitis AD OPERATIONS ASSOCIATE: None : Kidney stones HEENT: None Psych: Depression, Anxiety Musculoskeletal: None Derm: None - Past Surgical History Past Surgical History: Yes General: Cholecystectomy, Appendectomy /AD OPERATIONS ASSOCIATE: Hysterectomy - Present Medications Home Medications: Ambulatory Orders Medication Instructions Recorded Confirmed Levothyroxine Sodium 137 mcg PO DAILY 07/05/23 09/11/23 Venlafaxine ER [Effexor ER] 150 mg PO DAILY 07/05/23 09/11/23 Famotidine [Pepcid] 20 mg PO BID #60 tablet 07/24/23 09/11/23 Sucralfate [Carafate] 1 gm PO ACHS #60 tablet 07/24/23 09/11/23 - Allergies Allergies/Adverse Reactions: Allergies Allergy/AdvReac Type Severity Reaction Status Date / Time prochlorperazine edisylate * Allergy Severe paralysis Verified 09/11/23 14:32 [From Compazine] prochlorperazine maleate * Allergy Severe paralysis Verified 09/11/23 14:32 [From Compazine] Penicillins Allergy Unknown Rash Verified 09/11/23 14:32 Sulfa (Sulfonamide Allergy Unknown Nausea Verified 09/11/23 14:32 Antibiotics) - Social History Does the pt smoke?: No Smoking Status: Never smoker Does the pt drink ETOH?: Yes Does the pt have substance abuse?: No - Immunizations Immunizations are current?: Yes - POLST Patient has POLST: No PD ED PE NORMAL - Vitals Vital signs reviewed: Yes - General General: Alert and oriented X 3, No acute distress - Cardiac Cardiac: RRR, No murmur - Respiratory Respiratory: No respiratory distress, Clear bilaterally - Abdomen Abdomen: Normal bowel sounds, Soft, Non tender - Neuro Neuro: Alert and oriented X 3 Results - Vitals Vitals: Vital Signs - 24 hr 09/11/23 09/11/23 14:32 15:59 Temperature 36.2 C L 36.7 C Heart Rate 99 96 Respiratory 16 20 Rate Blood Pressure 153/106 H 167/93 H O2 Saturation 97 99 Oxygen O2 Source Room air - Labs Labs: Laboratory Tests 09/11/23 09/11/23 14:57 14:57 WBC 5.3 RBC 4.71 Hgb 14.6 Hct 42.6 MCV 90.4 MCH 31.0 MCHC 34.3 RDW 12.6 Plt Count 240 MPV 8.6 Neut # (Auto) 2.9 Lymph # (Auto) 1.8 [place] # (Auto) 0.4 Eos # (Auto) 0.1 Baso # (Auto) 0.1 Absolute Nucleated RBC 0.00 Nucleated RBC % 0.0 Sodium 134 L Potassium 4.0 Chloride 98 L Carbon Dioxide 23 Anion Gap 13.0 BUN 9 Creatinine 0.6 Estimated GFR (MDRD) 101 Glucose 94 Calcium 10.5 H Total Bilirubin 0.4 AST 127 H ALT 121 H Alkaline Phosphatase 125 H Total Protein 8.1 Albumin 5.0 Globulin 3.1 Albumin/Globulin Ratio 1.6 Lipase 10 L Ethyl Alcohol 190.6 PD Medical Decision Making - ED course ED course: 63-year-old woman presents with continued now chronic abdominal pain. Prior workups as above. She has a benign belly today. CBC is unremarkable. CMP showing some transaminitis. She told me initially she was no longer drinking, but I had a suspicion and a blood alcohol was done and quite positive at 190. I canceled the droperidol and Dilaudid that I had ordered as now this is clear that it could be dangerous when combined with the alcohol she already has on board. She was encouraged to quit drinking and she does voice some interest in detoxification. Discussed with her that her abdominal pain may be alcoholic gastritis and she voices understanding and an interest in quitting drinking. Departure - Departure Disposition: 01 Home, Self Care Clinical Impression: Gastritis Qualifiers: Gastritis type: alcoholic Chronicity: chronic Gastritis bleeding: without bleeding Qualified Code(s): K29.20 - Alcoholic gastritis without bleeding Alcohol intoxication Qualifiers: Complication of substance-induced condition: uncomplicated Qualified Code(s): F10.920 - Alcohol use, unspecified with intoxication, uncomplicated Condition: Good Record reviewed to determine appropriate education?: Yes Instructions: ED Gastritis Comments: You were seen today for chronic recurrent abdominal pain. Your blood counts were normal. You did have evidence of liver inflammation on your chemistry panel and your blood alcohol was 190. Unfortunately you had told me on the initial evaluation that she had not been drinking, and I suspect at least part of your gastritis type pain is related to your alcoholism. We think you would benefit from admission for detoxification and/or rehabilitation from alcohol and/or drugs. The closest facility that does this is in [place]. It is: [facility] [address] [place] [address] Call them at [phone] to arrange an intake appointment. It is still reasonable for you to seek gastroenterology consultation as is being arranged by your primary care physician. Forms: PCP List Discharge Date/Time: 09/11/23 16:01
[2023-09-11 15:04] LABS: BASOPHILS # (AUTO) 0.1 10^3/uL (0.0-0.1); BASOPHILS % (AUTO) 1.3 %; EOSINOPHILS # (AUTO) 0.1 10^3/uL (0.0-0.7); EOSINOPHILS % (AUTO) 1.9 %; HCT - HEMATOCRIT 42.6 % (37.0-47.0); HGB - HEMOGLOBIN 14.6 g/dL (12.0-16.0); LYMPHOCYTES # (AUTO) 1.8 10^3/uL (1.5-3.5); MEAN CORPUSCULAR HGB CONC 34.3 g/dL (32.0-36.0); MEAN CORPUSCULAR VOLUME 90.4 fL (81.0-99.0); MEAN PLATELET VOLUME 8.6 fL (7.9-10.8); MONOCYTES # (AUTO) 0.4 10^3/uL (0.0-1.0); MONOCYTES % (AUTO) 8.3 %; NEUTROPHILS # (AUTO) 2.9 10^3/uL (1.5-6.6); NEUTROPHILS % (AUTO) 54.3 %; PLT - PLATELET COUNT 240 10^3/uL (130-450); RED BLOOD COUNT 4.71 10^6/uL (4.20-5.40); RED CELL DISTRIBUTION WIDTH 12.6 % (12.0-15.0); WHITE BLOOD COUNT 5.3 x10^3/uL (4.8-10.8)
[2023-09-11 15:25] LABS: ALBUMIN/GLOBULIN RATIO 1.6 (1.0-2.2); BILIRUBIN,TOTAL 0.4 mg/dL (0.2-1.0); CALCIUM 10.5 mg/dL (8.5-10.3); CREATININE 0.6 mg/dL (0.6-1.3); ETOH - ETHANOL 190.6 mg/dL; TOTAL PROTEIN 8.1 g/dL (6.4-8.9)
[2023-09-11] MEDS: DROPERIDOL 5 MG/2 ML VIAL IVP STA (15:48)
[2023-09-11] MEDS: HYDROmorphone 2 MG/ML VIAL IVP STA (15:49)
[2023-09-11] MEDS: PANTOPRAZOLE 40 MG VIAL IVP STA (15:50)
[2023-09-11 16:08] VITALS: BP 167/93; O2SAT 99
== END 2023-09-11 16:01 | disposition home or self-care (01) ==
LOC: ED 14:29
DX: K29.20 Alcoholic gastritis without bleeding (principal); F10.920 Alcohol use, unspecified with intoxication, uncomplicated; Y90.6 Blood alcohol level of 120-199 mg/100 ml
CPT/HCPCS: 36415; 80053; 82077; 83690; 85025; 96374; 99284

== ENCOUNTER 2023-10-03 07:36 | Day surgery (SDC) | payer OTHER ==
[2023-10-03] MEDS: LACTATED RINGERS 1,000 ML IV ONE (07:49)
--- NOTE | 2023-10-03 09:22 | ANESTHESIA ---
Pre-Anesthesia VS, & Labs - Diagnosis GERD, heartburn, fullness - Procedure EGD Vital Signs: Temp Pulse Resp BP Pulse Ox O2 Flow Rate 36.6 C 88 20 162/85 H 99 10/03/23 07:55 10/03/23 07:55 10/03/23 07:55 10/03/23 07:55 10/03/23 07:55 Height: 5 ft 4 in Weight (kg): 75.2 kg Body Mass Index: 28.4 BMI Classification: Overweight - NPO >8 hours - Is Patient ?: No Home Medications and Allergies Levothyroxine Sodium 137 mcg PO DAILY 07/05/23 Venlafaxine ER [Effexor ER] 150 mg PO DAILY 07/05/23 Allergies/Adverse Reactions: Allergies Allergy/AdvReac Type Severity Reaction Status Date / Time prochlorperazine edisylate * Allergy Severe paralysis Verified 10/03/23 08:11 [From Compazine] prochlorperazine maleate * Allergy Severe paralysis Verified 10/03/23 08:11 [From Compazine] Penicillins Allergy Unknown Rash Verified 10/03/23 08:11 Sulfa (Sulfonamide Allergy Unknown Nausea Verified 10/03/23 08:11 Antibiotics) Anes History & Medical History - Anesthetic History Anesthesia Complications: reports: No previous complications Family history of Anesthesia Complications: Denies Family history of Malignant Hyperthermia: Denies - Medical History Cardiovascular: reports: None Pulmonary: reports: Sleep apnea Gastrointestinal: reports: GERD, Hiatal hernia, Other Urinary: reports: None Neuro: reports: None Musculoskeletal: reports: None Endocrine/Autoimmune: reports: HyPOthyroidism Blood Disorders: reports: None Skin: reports: None Smoking Status: Former smoker Psychosocial: reports: Alcohol (heavy ETOH for 40yrs, quit 3 weeks ago.) History of Cancer?: No - Surgical History General: reports: Cholecystectomy, Appendectomy Urologic: reports: Ureterolithotomy (stones) Gynecologic: reports: Hysterectomy Exam General: Alert, Oriented x3, Cooperative Dental: WNL Mouth Openin Fingerbreadth Neck Mobility: Normal Mallampati classification: II Thyromental Distance: 4-6 cm Respiratory: Lungs clear Cardiovascular: Regular rate Plan Anesthesia Type: General, Total IV Consent for Procedure(s) Verified and Reviewed: Yes Code Status: Attempt Resuscitation ASA classification: 3-Severe systemic disease Is this case an emergency?: No
[2023-10-03] MEDS ORDERED: MIDAZOLAM 2 MG/2 ML VIAL ONE (09:29)
[2023-10-03] MEDS ORDERED: KETAMINE 200 MG/20 ML VIAL ONE (09:29)
[2023-10-03] MEDS ORDERED: PROPOFOL 200 MG/20 ML VIAL IVP ONE ×2 (09:40)
[2023-10-03] MEDS ORDERED: LIDOCAINE-PF 2% 10 ML AMP SUBQ ONE (09:40)
[2023-10-03] MEDS: LACTATED RINGERS 600 ML IV ONE (10:04)
[2023-10-03 10:28] VITALS: BP 144/90; O2SAT 99
--- NOTE | 2023-10-03 14:07 | ANESTHESIA POST OP EVALUATION ---
Anesthesia Post Eval - Post Anesthesia Eval Vitals: Last Vital Signs Temp 36.9 C 10/03/23 10:04 Pulse 84 10/03/23 10:20 Resp 18 10/03/23 10:20 BP 144/90 H 10/03/23 10:20 Pulse Ox 99 10/03/23 10:20 O2 Flow Rate CV Function Including HR & BP: Stable Pain Control: Satisfactory Nausea & Vomiting: Negative Mental Status: Baseline Respiratory Status: Airway Patent Hydration Status: Satisfactory Anesthesia Complications: None
== END 2023-10-03 07:37 | disposition home or self-care (01) ==
LOC: SDS 07:36
PROVIDERS: ATTEND Surgery
PROC: 0DB68ZX Excision of Stomach, Via Natural or Artificial Opening Endoscopic, Diagnostic (ICD-10-PCS; 2023-10-03)
PROC: 0DB28ZX Excision of Middle Esophagus, Via Natural or Artificial Opening Endoscopic, Diagnostic (ICD-10-PCS; 2023-10-03)
PROC: 0DB38ZX Excision of Lower Esophagus, Via Natural or Artificial Opening Endoscopic, Diagnostic (ICD-10-PCS; 2023-10-03)
PROC: 0DB98ZX Excision of Duodenum, Via Natural or Artificial Opening Endoscopic, Diagnostic (ICD-10-PCS; principal; 2023-10-03 09:15)
DX: K21.9 Gastro-esophageal reflux disease without esophagitis (principal); K22.10 Ulcer of esophagus without bleeding; K44.9 Diaphragmatic hernia without obstruction or gangrene; R11.2 Nausea with vomiting, unspecified; R12 Heartburn; R68.81 Early satiety; Z87.891 Personal history of nicotine dependence
CPT/HCPCS: 43239; J3490; J7120

== ENCOUNTER 2023-10-14 07:00 | Outpatient (CLI) | payer OTHER ==
--- NOTE | 2023-10-14 16:40 | XRAY Report ---
PROCEDURE: Calcaneus 2+V RT INDICATIONS: RIGHT ACHILLES TENDON STRAIN TECHNIQUE: Two views of the calcaneus were acquired. COMPARISON: None. FINDINGS: Bones: No fractures or dislocations. No suspicious bony lesions. Soft tissues: No suspicious calcifications. Achilles tendon appears normal. IMPRESSION: No acute bony abnormality. Achilles tendon appears grossly within normal limits radiographically. If indicated, consider MRI for further evaluation. Reviewed by: Tho Rehman MD on 10/14/2023 4:39 PM PDT Approved by: Tho Rehman MD on 10/14/2023 4:39 PM PDT Station ID: [id number]
== END 2023-10-14 23:59 | disposition home or self-care (01) ==
LOC: DI.S 07:00
PROVIDERS: ATTEND Emergency Medicine
DX: S86.011A Strain of right Achilles tendon, initial encounter (principal)

== ENCOUNTER 2024-02-10 16:48 | Outpatient (CLI) | payer OTHER | END 2024-02-10 23:59 | disposition critical access hospital (66) | LOC: EMS 16:48 | DX: R10.9 Unspecified abdominal pain (principal); R11.0 Nausea; R42 Dizziness and giddiness | CPT/HCPCS: A0425; A0427 ==

== ENCOUNTER 2024-02-10 17:00 | Emergency (ER) | payer OTHER ==
--- NOTE | 2024-02-10 17:06 | ED Physician Documentation ---
History of Present Illness - Stated complaint Stated Complaint: R FLANK PX - History obtained from History obtained from: Patient - Additonal information Additional information: 63-year-old woman with history of depression, anxiety, and 6 kidney stones. She has had lithotripsy once in the past. She developed right flank pain about 6 hours ago which worsened over the last couple of hours with 1 episode of nausea. She has had urinary frequency as well. She is feeling somewhat better on arrival here after Toradol and Zofran given by EMS. PD PAST MEDICAL HISTORY - Past Medical History Cardiovascular: None Respiratory: Sleep apnea Neuro: None Endocrine/Autoimmune: HyPOthyroidism GI: GERD, Hiatal hernia, Other TABLE TENDER SLUDGE: None : None HEENT: None Psych: Depression Musculoskeletal: None Derm: None - Past Surgical History Past Surgical History: Yes General: Cholecystectomy, Appendectomy /TABLE TENDER SLUDGE: Hysterectomy - Present Medications Home Medications: Ambulatory Orders Medication Instructions Recorded Confirmed Levothyroxine Sodium 137 mcg PO DAILY 07/05/23 02/10/24 Venlafaxine ER [Effexor ER] 150 mg PO DAILY 07/05/23 02/10/24 Famotidine [Pepcid] 20 mg PO BID #60 tablet 07/24/23 02/10/24 - Allergies Allergies/Adverse Reactions: Allergies Allergy/AdvReac Type Severity Reaction Status Date / Time prochlorperazine edisylate * Allergy Severe paralysis Verified 02/10/24 17:12 [From Compazine] prochlorperazine maleate * Allergy Severe paralysis Verified 02/10/24 17:12 [From Compazine] Penicillins Allergy Unknown Rash Verified 02/10/24 17:12 Sulfa (Sulfonamide Allergy Unknown Nausea Verified 02/10/24 17:12 Antibiotics) - Social History Does the pt smoke?: No Smoking Status: Former smoker Does the pt drink ETOH?: Yes Does the pt have substance abuse?: No - Immunizations Immunizations are current?: Yes - POLST Patient has POLST: No PD ED PE NORMAL - Vitals Vital signs reviewed: Yes - General General: Alert and oriented X 3, No acute distress - Abdomen Abdomen: Normal bowel sounds, Soft, Non tender - Back Back: Other (She is tender over the right CVA) - Neuro Neuro: Alert and oriented X 3 Results - Vitals Vitals: Vital Signs - 24 hr 02/10/24 17:01 Temperature 36.1 C L Heart Rate 99 Respiratory 18 Rate Blood Pressure 157/94 H O2 Saturation 97 Oxygen O2 Source Room air - Labs Labs: Laboratory Tests 02/10/24 02/10/24 02/10/24 17:10 17:11 17:11 WBC 5.4 RBC 4.83 Hgb 14.6 Hct 43.7 MCV 90.5 MCH 30.2 MCHC 33.4 RDW 12.8 Plt Count 243 MPV 8.9 Neut # (Auto) 2.8 Lymph # (Auto) 1.9 [place] # (Auto) 0.6 Eos # (Auto) 0.1 Baso # (Auto) 0.1 Absolute Nucleated RBC 0.00 Nucleated RBC % 0.0 Sodium 137 Potassium 3.8 Chloride 104 Carbon Dioxide 25 Anion Gap 8.0 BUN 13 Creatinine 0.6 Estimated GFR (MDRD) 101 Glucose 114 H Calcium 10.0 Total Bilirubin 0.4 AST 81 H ALT 120 H Alkaline Phosphatase 94 Total Protein 7.4 Albumin 4.9 Globulin 2.5 Albumin/Globulin Ratio 2.0 Urine Color YELLOW Urine Clarity SL. CLOUDY Urine pH 6.0 Ur Specific [place] 1.010 Urine Protein NEGATIVE Urine Glucose (UA) NEGATIVE Urine Ketones NEGATIVE Urine Occult Blood LARGE H Urine Nitrite NEGATIVE Urine Bilirubin NEGATIVE Urine Urobilinogen 0.2 (NORMAL) Ur Leukocyte Esterase NEGATIVE Urine RBC 11-25 H Urine WBC 0-3 Ur Squamous Epith Cells FEW Squamous Urine Bacteria None Seen Ur Microscopic Review INDICATED Urine Culture Comments NOT INDICATED Ethyl Alcohol 02/10/24 17:59 WBC RBC Hgb Hct MCV MCH MCHC RDW Plt Count MPV Neut # (Auto) Lymph # (Auto) [place] # (Auto) Eos # (Auto) Baso # (Auto) Absolute Nucleated RBC Nucleated RBC % Sodium Potassium Chloride Carbon Dioxide Anion Gap BUN Creatinine Estimated GFR (MDRD) Glucose Calcium Total Bilirubin AST ALT Alkaline Phosphatase Total Protein Albumin Globulin Albumin/Globulin Ratio Urine Color Urine Clarity Urine pH Ur Specific [place] Urine Protein Urine Glucose (UA) Urine Ketones Urine Occult Blood Urine Nitrite Urine Bilirubin Urine Urobilinogen Ur Leukocyte Esterase Urine RBC Urine WBC Ur Squamous Epith Cells Urine Bacteria Ur Microscopic Review Urine Culture Comments Ethyl Alcohol 152.1 - Rads (name of study) CT KUB demonstrates hepatic steatosis, no nephrolithiasis or ureteral lithiasis. Relevant Findings:: Final report received, EMP independent interpretation of test PD Medical Decision Making - ED course ED course: 63-year-old woman with history of nephrolithiasis and ureterolithiasis presents with acute right flank pain. Pain was already improving after Toradol and Zofran prehospital and to this we added 1 mg of Dilaudid which helped immensely. She has unremarkable CBC, CMP was notable for mild elevation in her liver enzymes which we have noted in the past related to alcoholism. Her urinalysis did show blood. She was counseled to quit alcohol use and follow-up with urology for evaluation for microscopic hematuria. CT did not show any abnormalities other than steatohepatitis. Departure - Departure Disposition: 01 Home, Self Care Clinical Impression: Alcohol intoxication Qualifiers: Complication of substance-induced condition: uncomplicated Qualified Code(s): F10.920 - Alcohol use, unspecified with intoxication, uncomplicated Back pain Qualifiers: Back pain location: low back pain Chronicity: acute Back pain laterality: right Sciatica presence: without sciatica Qualified Code(s): M54.50 - Low back pain, unspecified Hematuria Qualifiers: Hematuria type: benign essential microscopic Qualified Code(s): R31.1 - Benign essential microscopic hematuria Condition: Good Record reviewed to determine appropriate education?: Yes Instructions: ED Alcohol Intoxication Follow-Up: Lionel Ramirez MD [Provider Admit Priv/Credential] - Comments: You continue to have signs of liver inflammation and are technically intoxicated today with a blood alcohol of 0.152 (legal limit for driving would be 0.08). You give a small amount of blood in your urine which could be from a passed stone but would recommend you follow-up with our urology clinic to discuss, and they may want to perform a cystoscopy if you continue to have this without any other specific reason. The numbers on this form, call for an appointment. Return for new or worsening symptoms.
[2024-02-10 17:17] LABS: BASOPHILS # (AUTO) 0.1 10^3/uL (0.0-0.1); BASOPHILS % (AUTO) 1.3 %; EOSINOPHILS # (AUTO) 0.1 10^3/uL (0.0-0.7); EOSINOPHILS % (AUTO) 1.8 %; HCT - HEMATOCRIT 43.7 % (37.0-47.0); HGB - HEMOGLOBIN 14.6 g/dL (12.0-16.0); LYMPHOCYTES # (AUTO) 1.9 10^3/uL (1.5-3.5); LYMPHOCYTES % (AUTO) 35.4 %; MEAN CORPUSCULAR HEMOGLOBIN 30.2 pg (27.0-31.0); MEAN CORPUSCULAR HGB CONC 33.4 g/dL (32.0-36.0); MEAN CORPUSCULAR VOLUME 90.5 fL (81.0-99.0); MEAN PLATELET VOLUME 8.9 fL (7.9-10.8); MONOCYTES # (AUTO) 0.6 10^3/uL (0.0-1.0); MONOCYTES % (AUTO) 10.3 %; NEUTROPHILS # (AUTO) 2.8 10^3/uL (1.5-6.6); PLT - PLATELET COUNT 243 10^3/uL (130-450); RED BLOOD COUNT 4.83 10^6/uL (4.20-5.40); RED CELL DISTRIBUTION WIDTH 12.8 % (12.0-15.0); WHITE BLOOD COUNT 5.4 x10^3/uL (4.8-10.8)
[2024-02-10] MEDS: HYDROmorphone 1 MG/ML CARPUJECT IVP STA (17:18)
[2024-02-10 17:26] LABS: BILIRUBIN,URINE NEGATIVE (NEGATIVE); GLUCOSE, URINE (UA) NEGATIVE (NEGATIVE); KETONES,URINE (UA) NEGATIVE (NEGATIVE); LEUKOCYTE ESTERASE, URINE NEGATIVE (NEGATIVE); NITRITE,URINE NEGATIVE (NEGATIVE); OCCULT BLOOD,URINE LARGE (NEGATIVE); PROTEIN,URINE NEGATIVE (NEGATIVE); UROBILINOGEN,URINE 0.2 (NORMAL) E.U./dL (NORMAL)
[2024-02-10 17:31] LABS: ALBUMIN 4.9 g/dL (3.2-5.5); BILIRUBIN,TOTAL 0.4 mg/dL (0.2-1.0); CREATININE 0.6 mg/dL (0.6-1.3); POTASSIUM 3.8 mmol/L (3.5-4.5); TOTAL PROTEIN 7.4 g/dL (6.4-8.9)
[2024-02-10 17:34] LABS: CLARITY,URINE SL. CLOUDY (CLEAR)
[2024-02-10 17:38] LABS: BACTERIA,URINE None Seen /HPF (None Seen); SQUAMOUS EPITHELIAL CELL,UR FEW Squamous (<= Few); WBC,URINE 0-3 /HPF (0-5)
--- NOTE | 2024-02-10 18:06 | CT Report ---
PROCEDURE: Abdomen/Pelvis WO INDICATIONS: R flank pain TECHNIQUE: A CT scan of the abdomen and pelvis was performed without the use of intravenous contrast. Images we re recorded and evaluated at appropriate window settings. Reformats: coronal and sagittal. For radiat ion dose reduction, the following was used: automated exposure control, adjustment of mA and/or kV ac cording to patient size. COMPARISON: None. FINDINGS: Image quality: Diagnostic. Peritoneum: There is no pneumoperitoneum. There is no ascites. Bones: There is no acute osseous abnormality. The visualized vertebral body height are preserved. Lower Chest: The visualized lung parenchyma is clear. Left breast prosthetic implant. Liver: The liver is normal in size and contour. Hypoattenuation of the liver parenchyma. Gallbladder: Status post cholecystectomy. Biliary tree: There is no intrahepatic or extrahepatic biliary ductal dilatation. Pancreas: The pancreas is within normal limits. Spleen: The spleen is normal in size. Kidneys: The kidneys are symmetric in size. There is no hydronephrosis or obstructive urolithiasis. Adrenals: There is no adrenal nodularity. Bladder: The urinary bladder is within normal limits. : The uterus is atrophic or surgically absent. There are no abnormal adnexal masses. Stomach: The stomach is within normal limits. Bowel: The bowel is normal in diameter without any bowel obstruction. Status post appendectomy. Lymph Nodes: There is no retroperitoneal, mesenteric, or inguinal lymphadenopathy. Vascular: There is no abdominal aortic aneurysm. IMPRESSION: 1.No hydronephrosis or obstructive urolithiasis. 2.Hepatic steatosis. 3.Status post cholecystectomy and appendectomy. Reviewed by: Bradly Skelton MD on 02/10/2024 6:04 PM PDT Approved by: Bradly Skelton MD on 02/10/2024 6:04 PM PDT Station ID: [id number]
[2024-02-10 19:11] VITALS: BP 134/84; O2SAT 98
== END 2024-02-10 18:45 | disposition home or self-care (01) ==
LOC: EDUNIT# → EDBD → ED 17:00
DX: M54.50 Low back pain, unspecified (principal); R31.1 Benign essential microscopic hematuria; K70.9 Alcoholic liver disease, unspecified; K76.0 Fatty (change of) liver, not elsewhere classified; F10.129 Alcohol abuse with intoxication, unspecified; Y90.6 Blood alcohol level of 120-199 mg/100 ml; Z87.442 Personal history of urinary calculi; Z87.891 Personal history of nicotine dependence
CPT/HCPCS: 36415; 74176; 80053; 81001; 82077; 85025; 96374; 99284; J1170; 81003; 87086